=== PATIENT | male | born 1945 | race Caucasian/White ===

== ENCOUNTER → 2017-05-27 | Outpatient (CLI) | payer OTHER ==
[~2017-05-27] MED LIST: ACET-2043 PO; ACET500T68 PO; ALL300 PO; ALLO-119 PO; ASPI-816 CHEW; ATEN-1 PO; CAL667 PO; CETI-14 PO; CETI-176 PO; CHOL10005 PO; CHOL100052 PO; Capsaicin TP; DEX4 PO; DICL100G39 TOP; DULO30CA35 PO; DULO60CA56 PO; FLUT16SP19 ENA; FLUT16SP19 NS; FURO-45 PO; GABA-549 PO; GUAI600T57 PO; GUAI600T84 PO; HYDR2TAB4 PO; LEV125 PO; LEVO125T77 PO; LISI-362 PO; LOR5/325 PO; LOVA20TA99 PO; LOVA40TA89 PO; METO50TA19 PO; Multivitamins PO; NEPH PO; OMEP-137 PO; PANT40TA65 PO; POTA-53 PO; SENN-274 PO; TAMS0.4C70 PO; TIZA-128 PO; TIZA4CAP3 PO; TRAM-420 PO; UBIQ100C3 PO; WARF-1 PO; WARF-18 PO; WARF2.5T11 PO; [UNRECOGNIZED DRUG - CODE] TP; [UNRECOGNIZED DRUG - OTHER] PO
== END ==
LOC: LAB 11:28
PROVIDERS: ATTEND Internal Medicine
DX: M46.20 Osteomyelitis of vertebra, site unspecified (principal)
CPT/HCPCS: 36415; 86140

== ENCOUNTER → 2017-06-24 | Outpatient (CLI) | payer OTHER, MEDICARE ==
[~2017-06-24] MED LIST changes: -WARF-18 PO; +WARF5TAB23 PO
== END ==
LOC: LAB 10:45
PROVIDERS: ATTEND Internal Medicine
DX: M46.20 Osteomyelitis of vertebra, site unspecified (principal)
CPT/HCPCS: 36415; 86140

== ENCOUNTER 2017-07-11 09:47 | Outpatient (RCR) | payer OTHER, MEDICARE ==
--- NOTE | 2017-04-22 14:38 | PT INITIAL EVALUATION ---
MEDICAL DIAGNOSIS: Generalized weakness and Deconditioning TREATMENT DIAGNOSIS: Generalized weakness and Deconditioning DATE OF ONSET: 03/06/17 SUBJECTIVE: Jah Slaughter", is a 72 year-old male presenting to physical therapy following recent spinal fusion on March 06, 2017. Pt has had several fusions in the past with the first in 1979. This most recent fusion was from T10-L3 resulting in a total fusion of T10-S1. Since the surgery pt reports that he has been doing better and has been trying to walk as much as possible walking in the grocery stores and supermarkets. Pt reports no pain currently and generally only low pain at night. Prior to surgery pt was very sedentary secondary to pain and was also hospitalized for an extended time for osteomyelitis in October so pt was very weak before surgery from inactivity. Currently pt is trying to regain strength while also respecting and supporting recent surgery. REHAB PROBLEM LIST: Increased Pain Decreased ROM Impaired Bed Mobility Decreased Strength Impaired Transfers Decreased Endurance Decreased Function Decreased ADL's Decreased Mobility Decreased Gait PREVIOUS MEDICAL HISTORY: See EMR OBJECTIVE: Incision is healing nicely without any redness, drainage or warmth surrounding. Pt has multiple locations of scabbing. Incision has poor mobility. Posture: Forward posture lean with ambulation hinging at hips. ROM: LE ROM WFL Strength: LE MMT: Hip: flexion: L 4-/5, R 4/5, ext: B 5-/5, abd/add: B 5-/5. Knee: Flexion: L 4-/5, R 4/5, ext: B 4/5. Ankle: DF: L 3-/3, R 3+/5, PF: L 2+/5 , R 3+/5. Mobility: 5 times sit<>stand: 10 sec without use of B UE but with significant deviation in hip positioning with increased loading of R LE. Gait: Pt uses a FWW with UE platform modifications for long distance or ambulation on unsteady terrain. At home pt uses SPC for improved mobility. Pt reports that he occasionally catches toe with ambulation. Gait is significant for decreased foot clearance and slow subha with small stride. Other Objective Findings: Lower Extremity Functional Scale: 21/80 ASSESSMENT: Pt shows signs and symptoms consistent with generalized weakness following recent spinal fusion. Physical therapy is indicated to address the above listed deficits and impairments to improve pt functional ambulation, mobility and function with ALD's. Short Term Goals In 3 weeks pt will report back pain of <1/10 with ADL's and mobility for increased function. In 3 weeks pt will improve LE strength to >3+/5 in all major muscle groups for improved functional ambulation with ADL's. In 5 weeks pt will be able to ambulate 2 laps around the track with SPC safely without any LOB for improved function with ADL's. In 6 weeks pt will increase strength to >4/5 in all major muscle groups for improved functional ambulation. In 6 weeks pt will increase LEFS score to >30/50 for improved functional ability to perform ADL's. Patient's Goals Improve strength and function. PLAN: Patient to be seen for Manual Therapy/STM/MET Strengthening/condition Ice/Heat Range of Motion Spinal Stabilization Ultrasound Stretching Iontophoresis Neuromuscular Re-ed Closed Chain Program Electrical Stim Posture/Body mechanics Gait Trg/Balance Trg Biofeedback Home Exercise Program Mech./Manual Traction Therapeutic Activities Pelvic Floor 2x/Week for 6 Weeks If you have any questions, comments, or concerns about this report or plan, please contact me at . Thank you, Jamila Spencer, PT, DPT, CLT MTDD
--- NOTE | 2017-05-27 12:51 | PT PLAN OF CARE ---
Physician: SILVIA Ramos Patient is being seen: 2-3x/Week Therapist: Jamila Spencer, PT, DPT, CLT Medical Diagnosis: Generalized weakness and Deconditioning Treatment Diagnosis: Generalized weakness and Deconditioning Date of Onset: 03/06/17 Date of Initial Evaluation: 04/22/17 Date patient was last seen: 05/27/17 Number of treatments: 10 Number of cancellations/No shows: 1 INTERVENTIONS: Manual Therapy/STM/MET Strengthening/condition Ice/Heat Range of Motion Spinal Stabilization Ultrasound Stretching Iontophoresis Neuromuscular Re-ed Closed Chain Program Electrical Stim Posture/Body mechanics Gait Trg/Balance Trg Biofeedback Home Exercise Program Mech./Manual Traction Therapeutic Activities Pelvic Floor GOALS: In 3 weeks pt will report back pain of <1/10 with ADL's and mobility for increased function. MET In 3 weeks pt will improve LE strength to >3+/5 in all major muscle groups for improved functional ambulation with ADL's. In Progress In 5 weeks pt will be able to ambulate 2 laps around the track with SPC safely without any LOB for improved function with ADL's. In Progress In 6 weeks pt will increase strength to >4/5 in all major muscle groups for improved functional ambulation. In Progress PATIENT'S GOAL: Improve strength and function. Status of Patient's Goals: 1/4 MET, 3/4 In Progress Patient Compliance: Good Prognosis: Good Reasons for continuing therapy: German shows good progress in therapy at this time. German shows improved strength in most all LE muscle groups B, and this has translated into increased functional strength with ADL's and mobility. Pt is still quick to fatigue with further treatment to gain muscular endurance. He also has more progress to make on strength recovery of the ankle joints for gait and balance. Incision mobility shows progress, but is still limited on the distal aspect where old scar tissue is limiting. Posture: Forward posture lean with ambulation hinging at hips. ROM: LE ROM WFL Strength: LE MMT: Hip: flexion: B 4+/5, ext: B 5-/5, abd/add: B 5/5. Knee: Flexion: B 4+/5, ext: L 4/5, R 4+/5. Ankle: DF: L 3/5, R 3+/5, PF: L B 3+/5. Special Tests: Lower Extremity Functional Scale: 39/80 (initial eval ) Mobility: 5 times sit<>stand: 10 sec. If you have any questions or concerns, please feel free to contact me at . Thank you, Jamila Spencer, PT, DPT, CLT CAYETANOD
--- NOTE | 2017-06-10 15:23 | PT PLAN OF CARE ---
Physician: SILVIA Ramos Patient is being seen: 2-3x/Week Therapist: Jamila Spencer, PT, DPT, CLT Medical Diagnosis: Generalized weakness and Deconditioning Treatment Diagnosis: Generalized weakness and Deconditioning Date of Onset: 03/06/17 Date of Initial Evaluation: 04/22/17 Date patient was last seen: 06/10/17 Number of treatments: 14 Number of cancellations/No shows: 1 INTERVENTIONS: Manual Therapy/STM/MET Strengthening/condition Ice/Heat Range of Motion Spinal Stabilization Ultrasound Stretching Iontophoresis Neuromuscular Re-ed Closed Chain Program Electrical Stim Posture/Body mechanics Gait Trg/Balance Trg Biofeedback Home Exercise Program Mech./Manual Traction Therapeutic Activities Pelvic Floor GOALS: In 3 weeks pt will report back pain of <1/10 with ADL's and mobility for increased function. MET In 3 weeks pt will improve LE strength to >3+/5 in all major muscle groups for improved functional ambulation with ADL's. In Progress In 5 weeks pt will be able to ambulate 2 laps around the track with SPC safely without any LOB for improved function with ADL's. In Progress In 6 weeks pt will increase strength to >4/5 in all major muscle groups for improved functional ambulation. In Progress PATIENT'S GOAL: Improve strength and function. Status of Patient's Goals: 1/4 MET, 3/4 In Progress Patient Compliance: Good Prognosis: Good Reasons for continuing therapy: German shows improved endurance with ambulation as well as progressive improvement with strengthening. Proximal strength shows gains much more than distally with ankle strength still his biggest limiting factor. Gait remains significant for Trendelenburg pattern, but is reduced prior to fatigue. Incision mobility shows improvement, but is also slow to progress with extensive scar tissue. Posture: Forward posture lean with ambulation hinging at hips. ROM: LE ROM WFL Strength: LE MMT: Hip: flexion: B 4+/5, ext: B 5-/5, abd/add: B 5/5. Knee: Flexion: B 4+/5, ext: L 4/5, R 4+/5. Ankle: DF: L 3/5, R 3+/5, PF: L B 3+/5. Special Tests: Lower Extremity Functional Scale: 47/80 (initial eval ) Mobility: 5 times sit<>stand: 10 sec. If you have any questions or concerns, please feel free to contact me at [phone]. Thank you, Jamila Spencer, PT, DPT, CLT ANEL
== END 2017-07-21 | disposition home or self-care (01) ==
LOC: PT 09:47
PROVIDERS: ATTEND Nurse Practitioner Family
DX: M62.81 Muscle weakness (generalized) (principal); Z98.1 Arthrodesis status
CPT/HCPCS: 97162

== ENCOUNTER → 2017-07-15 | Outpatient (CLI) | payer OTHER, MEDICARE | LOC: LAB 12:31 | PROVIDERS: ATTEND Internal Medicine Nephrology | DX: N18.2 Chronic kidney disease, stage 2 (mild) (principal); N40.0 Benign prostatic hyperplasia without lower urinary tract symptoms | CPT/HCPCS: 81001 ==

== ENCOUNTER → 2017-07-16 | Outpatient (REF) | payer OTHER, MEDICARE | LOC: ZZSENDIN 13:22 | DX: R31.1 Benign essential microscopic hematuria (principal) | CPT/HCPCS: 81001; 87088 ==

== ENCOUNTER → 2017-07-18 | Outpatient (CLI) | payer MEDICARE, OTHER ==
--- NOTE | 2017-07-18 16:44 | RADIOLOGY IMAGING REPORT ---
FACILITY: [facility] PATIENT NAME: Jah Crabtree : 1945 MR: [id number] V: [id number] EXAM DATE: ORDERING PHYSICIAN: TONYA GUZMAN TECHNOLOGIST: Location: [facility] Patient: Jah Crabtree : 1945 Visit/Account:[id number] Date of Sevice: 07/18/2017 US SINGLE ORGAN, bladder HISTORY: Urinary incontinence at night COMPARISON: CT abdomen and pelvis October 25, 2016 FINDINGS: Urinary bladder prevoid volume was 326 mm. Post void residual was zero. Bilateral ureteral jets wer e present. No abnormality of the bladder wall was demonstrated IMPRESSION: Post void bladder residual zero Report Dictated By: Ana Euceda MD at 07/18/2017 4:37 PM Report E-Signed By: Ana Euceda MD at 07/18/2017 4:39 PM WSN:[id number]
== END ==
LOC: US 00:39
DX: R39.14 Feeling of incomplete bladder emptying (principal)
CPT/HCPCS: 76705

== ENCOUNTER → 2017-07-29 | Outpatient (CLI) | payer OTHER | LOC: LAB 10:47 | PROVIDERS: ATTEND Internal Medicine | DX: M46.20 Osteomyelitis of vertebra, site unspecified (principal) | CPT/HCPCS: 36415; 86140 ==

== ENCOUNTER 2017-09-09 09:45 | Outpatient (RCR) | payer OTHER, MEDICARE ==
--- NOTE | 2017-07-25 17:20 | PT PLAN OF CARE ---
Physician: SILVIA Ramos Patient is being seen: 2-3x/Week Therapist: Jamila Spencer, PT, DPT, CTL Medical Diagnosis: Generalized weakness and Deconditioning Treatment Diagnosis: Generalized weakness and Deconditioning Date of Onset: 03/06/17 Date of Initial Evaluation: 04/22/17 Date patient was last seen: 07/25/17 Number of treatments: 24 Number of cancellations/No shows: 4 INTERVENTIONS: Manual Therapy/STM/MET Strengthening/condition Ice/Heat Range of Motion Spinal Stabilization Ultrasound Stretching Iontophoresis Neuromuscular Re-ed Closed Chain Program Electrical Stim Posture/Body mechanics Gait Trg/Balance Trg Biofeedback Home Exercise Program Mech./Manual Traction Therapeutic Activities Pelvic Floor GOALS: In 3 weeks pt will report back pain of <1/10 with ADL's and mobility for increased function. MET In 3 weeks pt will improve LE strength to >3+/5 in all major muscle groups for improved functional ambulation with ADL's. MET In 5 weeks pt will be able to ambulate 2 laps around the track with SPC safely without any LOB for improved function with ADL's. MET In 6 weeks pt will increase strength to >4/5 in all major muscle groups for improved functional ambulation. In Progress PATIENT'S GOAL: Improve strength and function. Status of Patient's Goals: 3/4 Goals MET Patient Compliance: Good Prognosis: Good Reasons for continuing therapy: Pt shows slow, but good progress with endurance and strength. Pt shows neuromuscular return to B feet and ankles resulting in improved balance. Pt is still quick to fatigue with ambulation, but shows progress each visit with endurance gains. Back pain regularly fluctuates at low ranges if present. Further physical therapy is indicated for this patient to continue with pt progress to meet functional goals. Posture: Forward posture lean with ambulation hinging at hips. ROM: LE ROM WFL Strength: LE MMT: Hip: flexion: B 5/5, ext: B 5-/5, abd/add: B 5/5. Knee: Flexion: B 5-/5, ext: L 4/5, R 4+/5. Ankle: DF: L 4/5, R 4+/5, PF: B 3+/5. Special Tests: Lower Extremity Functional Scale: 44/80 (initial eval /) Mobility: 5 times sit<>stand: 10 sec. Gait: Pt is able to ambulate 3 laps around the track with standing rest breaks two times. 6-minute walk: 513 moyo=669.4 meters If you have any questions or concerns, please feel free to contact me at . Thank you, Jamila Spencer, PT, DPT, CLT ANEL
[~2017-09-09 09:45] MED LIST changes: -ASPI-816 CHEW; +ASPI-870 CHEW
--- NOTE | 2017-09-26 11:38 | PT PLAN OF CARE ---
Physician: SILVIA Ramos Patient is being seen: 2-3x/Week Therapist: Jamila Spencer, PT, DPT, CLT Medical Diagnosis: Generalized weakness and Deconditioning Treatment Diagnosis: Generalized weakness and Deconditioning Date of Onset: 03/06/17 Date of Initial Evaluation: 04/22/17 Date patient was last seen: 09/09/17 Number of treatments: 30 Number of cancellations/No shows: 9 INTERVENTIONS: Manual Therapy/STM/MET Strengthening/condition Ice/Heat Range of Motion Spinal Stabilization Ultrasound Stretching Iontophoresis Neuromuscular Re-ed Closed Chain Program Electrical Stim Posture/Body mechanics Gait Trg/Balance Trg Biofeedback Home Exercise Program Mech./Manual Traction Therapeutic Activities Pelvic Floor GOALS: In 3 weeks pt will report back pain of <1/10 with ADL's and mobility for increased function. MET In 3 weeks pt will improve LE strength to >3+/5 in all major muscle groups for improved functional ambulation with ADL's. MET In 5 weeks pt will be able to ambulate 2 laps around the track with SPC safely without any LOB for improved function with ADL's. MET In 6 weeks pt will increase strength to >4/5 in all major muscle groups for improved functional ambulation. In Progress PATIENT'S GOAL: Improve strength and function. Status of Patient's Goals: 3/4 Goals MET Patient Compliance: Good Prognosis: Good Reasons for discharge from therapy: German is to discharge from physical therapy at this time secondary to completion of 3/4 goals. At the time of discharge, pt showed improved gait mechanics as well as LE strength and balance. Pt endurance shows improvement and pt is able to tolerate prolonged walking with occasional rest breaks. However, pt remains to have intermittent pain in the R lateral hip secondary to likely bursitis. Pt shows little response to ice and exercise resulting in small decreases in frequency of pain. However, pt also reports low compliance with frequency of icing as well as low compliance with performance of HEP. I believe that patient would benefit from steroid injections to the hip to decrease the inflammatory process. Pt is to continue with HEP and gait correction techniques at this time and follow up with PT at a later time following consult with orthopaedic physician. Posture: Forward posture lean with ambulation hinging at hips. ROM: LE ROM WFL Strength: LE MMT: Hip: flexion: B 5/5, ext: B 5-/5, abd/add: B 5/5. Knee: Flexion: B 5-/5, ext: L 4/5, R 4+/5. Ankle: DF: L 4/5, R 4+/5, PF: B 3+/5. Special Tests: Lower Extremity Functional Scale: 44/80 (initial eval ) Mobility: 5 times sit<>stand: 10 sec. Gait: Pt is able to ambulate 3 laps around the track with standing rest breaks two times. 6-minute walk: 513 xbud=178.4 meters If you have any questions or concerns, please feel free to contact me at . Thank you, Jamila Spencer, PT, DPT, CLT CAYETANOD
== END 2017-09-09 18:00 | disposition home or self-care (01) ==
LOC: PT 09:45
PROVIDERS: ATTEND Nurse Practitioner Family
DX: M62.81 Muscle weakness (generalized) (principal); Z98.1 Arthrodesis status

== ENCOUNTER 2017-10-22 13:42 | Emergency (ER) | payer MEDICARE, OTHER ==
[2017-10-22] MEDS ORDERED: WARF5TAB23 PO ×2 (13:50)
--- NOTE | 2017-10-22 14:00 | ER Report ---
History and Physical Time Seen By MD: 13:50 Hx. of Stated Complaint: FELL BACKWARDS OFF OF STEP LADDER. LACERATION TO HEAD HPI/ROS Chief Complaint: "Fell from stool and hit head" HPI: 72-year-old male presents to the ED today with his . The patient reports that he fell about 30 minutes ago from a stool in the garage and hit his head. He states that he did not lose consciousness. Reports no associated pain. No treatments tried. ROS: Constitutional: Denies fever, or chills Eyes: denies changes in vision ENMT: denies sinus pressure CV: denies chest pain Resp: denies shortness of breath, denies difficulty breathing GI: denies nausea or vomiting Musculoskeletal: denies pain Neuro: denies headache, denies pain Allergies: Coded Allergies: morphine (Verified Allergy, Intermediate, nausea/vomiting, 10/22/17) Home Meds Active Scripts Tramadol Hcl (TRAMADOL HCL) 50 Mg Tablet, 50 MG PO TID Y for PAIN, #30 TAB Prov:ABI GORDON MD 11/21/16 Vitamin B Cmplx/Vit C/Folic Ac (TRIPHROCAPS SOFTGEL) 1 Each Cap, 1 EACH PO QDAY , #30 CAP Prov:ABI GORDON MD 11/21/16 Ubiquinol (UBIQUINOL) 100 Mg Capsule, 100 MG PO QHS, #30 CAPSULE Prov:ABI GORDON MD 11/21/16 Sennosides/Docusate Sodium (SENNA-TIME S TABLET) 1 Each Tablet, 1 EACH PO BID, # 60 TAB Prov:ABI GORDON MD 11/21/16 [Multivitamins Tab] 1 EA TAB No Conflict Check, 1 EACH PO QDAY, #30 TAB Prov:ABI GORDON MD 11/21/16 Metoprolol Succinate (METOPROLOL SUCCINATE) 50 Mg Tab.er.24h, 150 MG PO QDAY, # 90 TAB Prov:ABI GORDON MD 11/21/16 Duloxetine Hcl (CYMBALTA) 30 Mg Capsule.dr, 60 MG PO QDAY, #30 CAP Prov:ABI GORDON MD 11/21/16 Cholecalciferol (Vitamin D3) (VITAMIN D) 1,000 Unit Tablet, 1000 UNIT PO QDAY, # 30 TAB Prov:ABI GORDON MD 11/21/16 [Beta-Carotene(A) & E/Min Tab] 1 EA TAB No Conflict Check, 1 EACH PO BIDBS, #60 TAB Prov:ABI GORDON MD 11/21/16 Aspirin (Children's Aspirin) 81 Mg Tab.chew, 81 MG CHEW QDAY, #30 TAB.CHEW Prov:ABI GORDON MD 11/21/16 Allopurinol (ZYLOPRIM 300 MG TAB (OR EQUIV)) 300 Mg Tab, 150 MG PO QHS, #30 TAB Prov:ABI GORDON MD 11/21/16 Acetaminophen (ACETAMINOPHEN) 500 Mg Tablet, 1000 MG PO BID Y for PAIN, #100 TAB Prov:ABI GORDON MD 11/21/16 Reported Medications Gabapentin (GABAPENTIN) 300 Mg Capsule, 300-600 MG PO BID, CAPSULE 10/22/17 Warfarin Sodium (WARFARIN SODIUM) 5 Mg Tablet, 2.5 MG PO SAT, SUN, TAB 10/22/17 Warfarin Sodium (WARFARIN SODIUM) 5 Mg Tablet, 5 MG PO M-F, TAB 10/22/17 Lovastatin (LOVASTATIN) 40 Mg Tablet, 40 MG PO QPM 10/25/16 Levothyroxine Sodium (SYNTHROID) 125 Mcg Tablet, 125 MCG PO QDAY 10/25/16 Tizanidine Hcl (TIZANIDINE HCL) 4 Mg Tablet, 4 MG PO HS 10/25/16 Tamsulosin Hcl (TAMSULOSIN HCL) 0.4 Mg Cap.er.24h, 0.4 MG PO QDAY, CAP 10/25/16 Omeprazole (OMEPRAZOLE) 20 Mg Tablet.dr, 20 MG PO QDAY, TAB 10/25/16 Guaifenesin (Guaifenesin ER) 600 Mg Tab.er.12h, 1 TAB PO BID 10/25/16 Fluticasone Prop 50 Mcg Ns (FLONASE 50 MCG NS) 16 Gm [place].susp, 2 SPRAYS NS QDAY, BOT 10/25/16 Cetirizine Hcl (ZYRTEC) 10 Mg Tablet, 10 MG PO QDAY, TAB 10/25/16 Discontinued Reported Medications Cholecalciferol (Vitamin D3) (VITAMIN D3) 1,000 Unit Tablet, 2000 UNIT PO QDAY, TAB 10/25/16 Atenolol (ATENOLOL) 50 Mg Tablet, 0.5 TAB PO QAM, TAB 10/25/16 Gabapentin (GABAPENTIN) 300 Mg Capsule, 1200 MG PO QHS, CAPSULE 10/25/16 Gabapentin (GABAPENTIN) 300 Mg Capsule, 900 MG PO TID Y for QAM, CAPSULE 10/25/16 Duloxetine Hcl (CYMBALTA) 60 Mg Capsule.dr, 60 MG PO QDAY, #5 CAP 10/25/16 Capsaicin (CAPSAICIN) 42.5 Gm Cream..g., 42.5 GM TP 10/25/16 Allopurinol (ZYLOPRIM) 300 Mg Tablet, 150 MG PO QDAY, TAB 10/25/16 Acetaminophen (TYLENOL EXTRA STRENGTH) 500 Mg Tablet, 1000 MG PO BID, TAB 10/25/16 Discontinued Scripts Warfarin Sodium (WARFARIN SODIUM) 2.5 Mg Tablet, 2.5 MG PO MoFr@1300, #10 TAB Prov:ABI GORDON MD 11/21/16 Warfarin Sodium (COUMADIN) 5 Mg Tablet, 5 MG PO SuTuWeThSa@1300, #25 TAB Prov:ABI GORDON MD 11/21/16 Tizanidine Hcl (TIZANIDINE HCL) 4 Mg Tablet, 4 MG PO TID Y for MUSCLE SPASMS/ BACK PAIN, #90 TAB Prov:ABI GORDON MD 11/21/16 Tamsulosin Hcl (TAMSULOSIN HCL) 0.4 Mg Cap.er.24h, 0.4 MG PO QHS, #30 CAP Prov:ABI GORDON MD 11/21/16 Pantoprazole Sodium (PANTOPRAZOLE SODIUM) 40 Mg Tablet.dr, 40 MG PO QDAY, #30 TAB Prov:ABI GORDON MD 11/21/16 Lovastatin (LOVASTATIN) 20 Mg Tablet, 40 MG PO QHS, #30 TAB Prov:ABI GORDON MD 11/21/16 Levothyroxine Sodium (LEVOTHYROXINE SODIUM) 0.125 Mg Tab, 0.125 MG PO QDAY@06, # 30 TAB Prov:ABI GORDON MD 11/21/16 Hydromorphone Hcl (HYDROMORPHONE HCL) 2 Mg Tablet, 4 MG PO Q6H Y for ACUTE PAIN , #15 TAB Prov:ABI GORDON MD 11/21/16 Hydrocodone Bit/Acetaminophen (HYDROCODON-ACETAMINOPHEN 5-325) 1 Each Tablet, 1- 2 EACH PO Q6H Y for ACUTE PAIN, #30 TAB Prov:ABI GORDON MD 11/21/16 Guaifenesin (MUCINEX) 600 Mg Tablet.er, 600 MG PO BID, #60 TAB Prov:ABI GORDON MD 11/21/16 Gabapentin (GABAPENTIN) 300 Mg Capsule, 1200 MG PO QHS, #120 CAPSULE Prov:ABI GORDON MD 11/21/16 Gabapentin (GABAPENTIN) 300 Mg Capsule, 900 MG PO QAM, #90 CAPSULE Prov:ABI GORDON MD 11/21/16 Fluticasone Prop 50 Mcg Ns (FLONASE 50 MCG NS) 16 Gm [place].susp, 0 GM MARISOL QDAY, #1 BOTTLE 2 sprays each nostril daily. Prov:ABI GORDON MD 11/21/16 Diclofenac Sodium 1% Gel (VOLTAREN 1% GEL) 100 Gm Gel..gram., 0 GM TOP BID, #1 TUBE Prov:ABI GORDON MD 11/21/16 Cetirizine Hcl (ALL DAY ALLERGY) 10 Mg Tablet, 10 MG PO QDAY, #30 TAB Prov:ABI GORDON MD 11/21/16 [Capsaicin 60 Gm Tube] 60 GM CR No Conflict Check, 0 GM TP QID, #1 TUBE Prov:ABI GORDON MD 11/21/16 Calcium Acetate (CALCIUM ACETATE) 667 Mg Cap, 667 MG PO TIDCF, #90 CAP Prov:ABI GORDON MD 11/21/16 Past Medical/Surgical History Spinal surgery February/2017 Hx Smoking: No Smoking Status: Never Smoker Hx Substance Use Disorder: No Hx Alcohol Use: No Constitutional Vital Sign - Last 24 Hours 10/22/17 10/22/17 10/22/17 10/22/17 13:47 13:49 13:57 14:12 Temp 98.3 Pulse 54 52 49 Resp 18 B/P (MAP) 153/86 153/86 (108) Pulse Ox 94 93 95 O2 Delivery Room Air 10/22/17 10/22/17 10/22/17 10/22/17 14:42 14:57 15:00 15:12 Pulse 45 50 44 B/P (MAP) 139/77 (97) Pulse Ox 93 91 92 10/22/17 15:12 Pulse 44 Pulse Ox 92 Physical Exam Physical Examination: General: 72-year-old, male, in no acute distress Head: normocephalic, 0.5 cm laceration to crown of head with scant blood Respiratory: BL equal respiratory excursion, CTA BL CV: Clear S1 S2, no murmurs Differential Diagnoses: Intracranial hemorrhage, concussion, laceration Medical Decision Making Data Points Laboratory Hematology Test 10/22/17 13:55 Prothrombin Time 23.3 seconds (12.0-14.4) Prothromb Time International Ratio 2.01 Activated Partial Thromboplast Time 43 seconds (23-35) Chemistry Test 10/22/17 13:55 Prothrombin Time 23.3 seconds (12.0-14.4) Prothromb Time International Ratio 2.01 Activated Partial Thromboplast Time 43 seconds (23-35) Coagulation Test 10/22/17 13:55 Prothrombin Time 23.3 seconds Prothromb Time International Ratio 2.01 Activated Partial Thromboplast Time 43 seconds EKG/Imaging Imaging Exam type: LUMBAR SPINE 4 VIEWS History: fall Comparison: CT and pelvis October 25, 2016 Findings: There are extensive postoperative changes of the thoracolumbar spine with pedicle screws at L4, L3, L2, T12, T11, T10. There is a metallic spacer between the T12 and L2 vertebral bodies in the location of a previously noted vertebral plantar at L1. Posterior fixation rods are in place. There is diffuse demineralization. There is a moderate compression fracture of T12 that appears similar to the prior study. Also noted are mild to moderate compression fractures also noted at T11, T10 and T9 perhaps slightly increased when compared to the prior study.. IMPRESSION: 1. Extensive postoperative changes of the thoracal lumbar spine as described above. Mild to moderate compression fractures at T9, T10, T11 may be slightly increased when compared to the prior CT from October 25, 2016 Report Dictated By: Ana Euceda MD at 10/22/2017 2:46 PM Report E-Signed By: Ana Euceda MD at 10/22/2017 2:[address] OF THE BRAIN WITHOUT CONTRAST HISTORY: Fell from a ladder. PROCEDURE: 3.0 mm contiguous axial sections were performed through the brain. Sagittal and coronal reformats were submitted. COMPARISON: None FINDINGS: BRAIN: Brain and intracranial structures: There is no mass lesion, hemorrhage or acute infarct. Orbits (included portions): Normal. Scalp: Laceration posteriorly on the left Skull: Normal. Paranasal sinuses and mastoid air cells (included portions): The medial maxillary sinus gage been resected. There is mild ethmoid and maxillary mucosal thickening. IMPRESSION: No evidence of acute intracranial abnormality. One of the following dose optimization techniques was utilized in the performance of this exam: Automated exposure control; adjustment of the mA and/ or kV according to the patient's size; or use of an iterative reconstruction technique. Specific details can be referenced in the facility's radiology CT exam operational policy. Report Dictated By: Doris Burgess MD at 10/22/2017 2:34 PM Report E-Signed By: Doris Burgess MD at 10/22/2017 2:38 PM ED Course/Re-evaluation ED Course 72-year-old patient present to the ED after falling from a stool while reaching for an item in the garage. History and physical examination was obtained. Differential diagnoses considered and discussed with the patient. Due to his Coumadin regiment the patient was sent for a CT of the head. The CT was negative for intracranial bleed. Due to recent surgery lumbar x-rays were done which were negative for any acute changes. Five jeanie were placed to close the head laceration and the patient was sent home for self-care. He has been encouraged to return to the clinic if his condition worsens. Procedure Patient identified, 0.5 cm laceration cleaned, 2mls of lidocaine with epinephrine injected into the scalp to anesthetize and 5 jeanie were placed to close the laceration. Decision to Disposition Date: Oct 22, 2017 Decision to Disposition Time: 15:42 Depart Departure Latest Vital Signs Vital Signs Date Time Temp Pulse Resp B/P (MAP) Pulse Ox O2 Delivery O2 Flow Rate FiO2 10/22/17 15:12 44 92 10/22/17 15:00 139/77 (97) 10/22/17 13:47 98.3 18 Room Air Impression: Primary Impression: Laceration of head Condition: Improved Disposition: HOME OR SELF-CARE Referrals: ROCKY HERNANDEZ APPLICATION CONSULTANT-C (PCP) Patient Instructions: Laceration (ED) Additional Instructions: Keep the wound clean and dry. Avoid showering the head for 48 hours Jigar will remove the jeanie in 5 days. Return to the Emergency Department if your condition worsens. Seek medical attention if you are experiencing and pain, redness, or swelling of the wound. Seek medical attention if you experience severe headache, nausea or vomiting. Problem Qualifiers Primary Impression: Laceration of head Encounter type: initial encounter Location of open wound of head: scalp Foreign body presence: without foreign body Qualified Codes: S01.01XA - Laceration without foreign body of scalp, initial encounter JIGAR PICKERING Oct 22, 2017 13:59
[2017-10-22] MEDS ORDERED: GABA-549 PO (14:01)
[2017-10-22 14:19] LABS: INR 2.01
--- NOTE | 2017-10-22 14:44 | RADIOLOGY IMAGING REPORT ---
FACILITY: [facility] PATIENT NAME: Jah Crabtree : 1945 MR: [id number] V: [id number] EXAM DATE: ORDERING PHYSICIAN: PASCUAL CRABTREE TECHNOLOGIST: Location: [facility] Patient: Jah Crabtree : 1945 Visit/Account:[id number] Date of Sevice: 10/22/2017 CT OF THE BRAIN WITHOUT CONTRAST HISTORY: Fell from a ladder. PROCEDURE: 3.0 mm contiguous axial sections were performed through the brain. Sagittal and coronal r eformats were submitted. COMPARISON: None FINDINGS: BRAIN: Brain and intracranial structures: There is no mass lesion, hemorrhage or acute infarct. Orbits (included portions): Normal. Scalp: Laceration posteriorly on the left Skull: Normal. Paranasal sinuses and mastoid air cells (included portions): The medial maxillary sinus gage been re sected. There is mild ethmoid and maxillary mucosal thickening. IMPRESSION: No evidence of acute intracranial abnormality. One of the following dose optimization techniques was utilized in the performance of this exam: Autom ated exposure control; adjustment of the mA and/or kV according to the patient's size; or use of an i terative reconstruction technique. Specific details can be referenced in the facility's radiology C T exam operational policy. Report Dictated By: Doris Burgess MD at 10/22/2017 2:34 PM Report E-Signed By: Doris Burgess MD at 10/22/2017 2:38 PM WSN:[id number]
--- NOTE | 2017-10-22 14:56 | RADIOLOGY IMAGING REPORT ---
FACILITY: [facility] [place] PATIENT NAME: Jah Crabtree : 1945 MR: [id number] V: [id number] EXAM DATE: ORDERING PHYSICIAN: PASCUAL CRABTREE TECHNOLOGIST: Location: [facility] Patient: Jah Crabtree : 1945 Visit/Account:[id number] Date of Sevice: 10/22/2017 Exam type: LUMBAR SPINE 4 VIEWS History: fall Comparison: CT and pelvis October 25, 2016 Findings: There are extensive postoperative changes of the thoracolumbar spine with pedicle screws at L4, L3, L 2, T12, T11, T10. There is a metallic spacer between the T12 and L2 vertebral bodies in the location of a previously noted vertebral plantar at L1. Posterior fixation rods are in place. There is diff use demineralization. There is a moderate compression fracture of T12 that appears similar to the pr ior study. Also noted are mild to moderate compression fractures also noted at T11, T10 and T9 perha ps slightly increased when compared to the prior study.. IMPRESSION: 1. Extensive postoperative changes of the thoracal lumbar spine as described above. Mild to moderate compression fractures at T9, T10, T11 may be slightly increased when compared to the prior CT from October 25, 2016 Report Dictated By: Ana Euceda MD at 10/22/2017 2:46 PM Report E-Signed By: Ana Euceda MD at 10/22/2017 2:51 PM WSN:[email or web address]
[2017-10-22 15:00] VITALS: BP 139/77
== END 2017-10-22 15:52 | disposition home or self-care (01) ==
LOC: ER 13:45
DX: S01.01XA Laceration without foreign body of scalp, initial encounter (principal); Z79.01 Long term (current) use of anticoagulants; W11.XXXA Fall on and from ladder, initial encounter
CPT/HCPCS: 70450; 72120; 85610; 85730; 99284

== ENCOUNTER → 2017-11-21 | Outpatient (CLI) | payer MEDICARE | LOC: LAB 09:41 | PROVIDERS: ATTEND Internal Medicine | DX: M46.20 Osteomyelitis of vertebra, site unspecified (principal) | CPT/HCPCS: 36415; 86140 ==

== ENCOUNTER → 2018-01-27 | Outpatient (CLI) | payer MEDICARE | LOC: LAB 09:40 | PROVIDERS: ATTEND Internal Medicine | DX: M46.20 Osteomyelitis of vertebra, site unspecified (principal) | CPT/HCPCS: 36415; 86140 ==

== ENCOUNTER → 2018-02-03 | Outpatient (CLI) | payer MEDICARE ==
[2018-02-03 13:56] LABS: PLATELET COUNT, AUTOMATED 240 K/uL (150-450)
== END ==
LOC: LAB 13:35
PROVIDERS: ATTEND Internal Medicine Nephrology
DX: N18.2 Chronic kidney disease, stage 2 (mild) (principal); I10 Essential (primary) hypertension; D50.9 Iron deficiency anemia, unspecified
CPT/HCPCS: 36415; 81001; 82040; 82310; 82374; 82435; 82565; 82728; 82947; 83540; 83550; 84100; 84132; 84295; 84520; 85025; 87088

== ENCOUNTER → 2018-04-10 | Outpatient (CLI) | payer MEDICARE ==
[~2018-04-10] MED LIST changes: -CETI-14 PO; +CETI-154 PO
[2018-04-10 09:26] LABS: LDL CHOLESTEROL 72 mg/dl
== END ==
LOC: LAB 08:46
PROVIDERS: ATTEND Internal Medicine Cardiovascular Disease
DX: I48.3 Typical atrial flutter (principal); I48.1 Persistent atrial fibrillation; I10 Essential (primary) hypertension; I45.2 Bifascicular block; R60.1 Generalized edema; E78.00 Pure hypercholesterolemia, unspecified
CPT/HCPCS: 36415; 82310; 82374; 82435; 82465; 82565; 82947; 83718; 84132; 84295; 84478; 84520

== ENCOUNTER 2018-04-15 19:43 | Emergency (ER) | payer MEDICARE ==
[2018-04-15] MEDS ORDERED: LEVO-3 PO (20:03)
[2018-04-15] MEDS ORDERED: HYDR12.556 PO (20:05)
[2018-04-15] MEDS ORDERED: DOXY-179 PO (20:05)
--- NOTE | 2018-04-15 20:09 | ER Report ---
History and Physical Time Seen By MD: 20:00 Hx. of Stated Complaint: FEVER WITH RIGHT HAND FINGER PAIN HPI/ROS CHIEF COMPLAINT: hand/wrist pain from fall, swelling, fever HISTORY OF PRESENT ILLNESS: This is a 73 year old male. He fell at the hardware store on Saturday. Had injured his nail on his middle finger. He had wrist and hand pain with swelling. Had seen urgent care and had x-rays of the wrist which were negative. His son did some Marcaine injections of the wrist to help with pain over the weekend with good relief although temporary. He is having continued pain and swelling. Also pain in middle finger where he had the nail injury. Now with some fevers at home, reported Temperature of 101.7 as the highest. He has no other symptoms such as shortness of breath, cough or chest pain. He is having normal bowel and bladder without dysuria. No runny nose or sore throat. Allergies: Coded Allergies: morphine (Verified Allergy, Intermediate, nausea/vomiting, 04/15/18) Home Meds Active Scripts Tramadol Hcl (TRAMADOL HCL) 50 Mg Tablet, 50 MG PO TID PRN for PAIN, #30 TAB Prov:ABI GORDON MD 11/21/16 Vitamin B Cmplx/Vit C/Folic Ac (TRIPHROCAPS SOFTGEL) 1 Each Cap, 1 EACH PO QDAY, #30 CAP Prov:ABI GORDON MD 11/21/16 Ubiquinol (UBIQUINOL) 100 Mg Capsule, 100 MG PO QHS, #30 CAPSULE Prov:ABI GORDON MD 11/21/16 Sennosides/Docusate Sodium (SENNA-TIME S TABLET) 1 Each Tablet, 1 EACH PO BID, #60 TAB Prov:ABI GORDON MD 11/21/16 [Multivitamins Tab] 1 EA TAB No Conflict Check, 1 EACH PO QDAY, #30 TAB Prov:ABI GORDON MD 11/21/16 Metoprolol Succinate (METOPROLOL SUCCINATE) 50 Mg Tab.er.24h, 150 MG PO QDAY, #90 TAB Prov:ABI GORDON MD 11/21/16 Duloxetine Hcl (CYMBALTA) 30 Mg Capsule.dr, 60 MG PO QDAY, #30 CAP Prov:ABI GORDON MD 11/21/16 Cholecalciferol (Vitamin D3) (VITAMIN D) 1,000 Unit Tablet, 1000 UNIT PO QDAY, #30 TAB Prov:ABI GORDON MD 11/21/16 [Beta-Carotene(A) & E/Min Tab] 1 EA TAB No Conflict Check, 1 EACH PO BIDBS, #60 TAB Prov:ABI GORDON MD 11/21/16 Acetaminophen (ACETAMINOPHEN) 500 Mg Tablet, 1000 MG PO BID PRN for PAIN, #100 TAB Prov:ABI GORDON MD 11/21/16 Reported Medications Hydrochlorothiazide (HYDROCHLOROTHIAZIDE) 12.5 Mg Capsule, 1 TAB PO QDAY, CAPSULE 04/15/18 Doxycycline Hyclate (DOXYCYCLINE HYCLATE) 100 Mg Tablet, 100 MG PO QDAY 04/15/18 Levothyroxine Sodium (LEVOTHYROXINE SODIUM) 100 Mcg Tablet, 150 MCG PO QDAY, TAB 04/15/18 Gabapentin (GABAPENTIN) 300 Mg Capsule, 300-600 MG PO BID, CAPSULE 10/22/17 Warfarin Sodium (WARFARIN SODIUM) 5 Mg Tablet, 2.5 MG PO SAT, SUN, TAB 10/22/17 Warfarin Sodium (WARFARIN SODIUM) 5 Mg Tablet, 5 MG PO M-F, TAB 10/22/17 Lovastatin (LOVASTATIN) 40 Mg Tablet, 40 MG PO QPM 10/25/16 Tizanidine Hcl (TIZANIDINE HCL) 4 Mg Tablet, 4 MG PO HS 10/25/16 Tamsulosin Hcl (TAMSULOSIN HCL) 0.4 Mg Cap.er.24h, 0.4 MG PO QDAY, CAP 10/25/16 Omeprazole (OMEPRAZOLE) 20 Mg Tablet.dr, 20 MG PO QDAY, TAB 10/25/16 Guaifenesin (Guaifenesin ER) 600 Mg Tab.er.12h, 1 TAB PO BID 10/25/16 Fluticasone Prop 50 Mcg Ns (FLONASE 50 MCG NS) 16 Gm [place].susp, 2 SPRAYS NS QDAY, BOT 10/25/16 Cetirizine Hcl (ZYRTEC) 10 Mg Tablet, 10 MG PO QDAY, TAB 10/25/16 Discontinued Reported Medications Levothyroxine Sodium (SYNTHROID) 125 Mcg Tablet, 125 MCG PO QDAY 10/25/16 Discontinued Scripts Aspirin (Children's Aspirin) 81 Mg Tab.chew, 81 MG CHEW QDAY, #30 TAB.CHEW Prov:ABI GORDON MD 11/21/16 Allopurinol (ZYLOPRIM 300 MG TAB (OR EQUIV)) 300 Mg Tab, 150 MG PO QHS, #30 TAB Prov:ABI GORDON MD 11/21/16 Reviewed Nurses Notes: Yes Hx Smoking: No Smoking Status: Never Smoker Hx Substance Use Disorder: No Hx Alcohol Use: No Constitutional Vital Sign - Last 24 Hours 04/15/18 04/15/18 04/15/18 04/15/18 19:51 19:54 20:00 20:13 Temp 100.1 Pulse 59 55 Resp 12 B/P (MAP) 124/61 (82) 124/61 115/64 (81) Pulse Ox 85 94 O2 Delivery Room Air 04/15/18 04/15/18 04/15/18 04/15/18 20:30 20:43 20:48 21:00 Pulse 51 58 B/P (MAP) 114/63 (80) ???/??? (1665) Pulse Ox 93 94 04/15/18 04/15/18 04/15/18 04/15/18 21:18 21:23 21:30 21:48 Pulse 55 55 B/P (MAP) 128/62 (84) 120/66 (84) Pulse Ox 95 04/15/18 04/15/18 04/15/18 04/15/18 22:00 22:05 22:30 22:35 Pulse 53 53 B/P (MAP) 132/61 (84) 125/67 (86) Pulse Ox 94 95 04/15/18 22:40 Pulse 52 Pulse Ox 95 Physical Exam General Appearance: The patient is alert. No acute distress. Eyes: Pupils are equal, round. No pallor, injection or icterus. ENT: Mucous membranes are moist. Normal oral mucosa. Posterior oropharynx is normal. Neck: Supple and non tender. Respiratory: Lungs are clear to auscultation. Cardiovascular: Regular rate and rhythm. No murmurs, gallops or rubs. Normal capillary refill. Normal pulses in the right wrist and hand with brisk capillary refill Gastrointestinal: Abdomen is soft and non tender. Neurological: Alert and oriented x3. Normal sensation in the right hand. No focal neurologic deficits in the extremities noted. Skin: Warm and dry throughout. He does have some swelling over the dorsal surfac e of the hand where there is pain. No skin breakdown other than in the right third finger at the nail but no nail avulsion. No redness or warmth associated with any type of an infectious etiology at this point. Musculoskeletal: He does have some chronic back and neck pain but no worse than usual. He has pain associated with palpation over the right wrist and dorsal surface of the hand. No pain in the middle finger. DIFFERENTIAL DIAGNOSIS: After history and physical exam, differential diagnosis was considered for fever and hand/wrist injury. With his history of epidural abscess, would worry about problems associated with this, but he has no further pain in the back at this time. No other localizing symptoms that would explain the fever. Medical Decision Making Data Points Result Diagram: 04/15/18201904/15/182019 Laboratory Hematology Test 04/15/18 20:20 Red Blood Count 3.59 M/uL (4.00-5.60) Mean Corpuscular Volume 91.1 fL (80.0-96.0) Mean Corpuscular Hemoglobin 31.6 pg (26.0-33.0) Mean Corpuscular Hemoglobin Concent 34.7 g/dL (32.0-36.0) Red Cell Distribution Width 14.7 % (11.5-14.5) Mean Platelet Volume 7.6 fL (7.2-11.1) Neutrophils (%) (Auto) 70.0 % (39.4-72.5) Lymphocytes (%) (Auto) 16.6 % (17.6-49.6) Monocytes (%) (Auto) 12.8 % (4.1-12.4) Eosinophils (%) (Auto) 0.1 % (0.4-6.7) Basophils (%) (Auto) 0.5 % (0.3-1.4) Nucleated RBC Relative Count (auto) 0.0 /100WBC Neutrophils # (Auto) 6.8 K/uL (2.0-7.4) Lymphocytes # (Auto) 1.6 K/uL (1.3-3.6) Monocytes # (Auto) 1.2 K/uL (0.3-1.0) Eosinophils # (Auto) 0.0 K/uL (0.0-0.5) Basophils # (Auto) 0.0 K/uL (0.0-0.1) Nucleated RBC Absolute Count (auto) 0.00 K/uL Erythrocyte Sedimentation Rate 39 mm/HOUR (0-20) Sodium Level 136 mmol/L (137-145) Potassium Level 3.4 mmol/L (3.5-5.0) Chloride Level 101 mmol/L (98-107) Carbon Dioxide Level 25 mmol/L (22-30) Blood Urea Nitrogen 23 mg/dl (9-21) Creatinine 1.30 mg/dl (0.66-1.25) Glomerular Filtration Rate Calc 54.4 Random Glucose 104 mg/dl (75-110) Calcium Level 8.5 mg/dl (8.4-10.2) Total Bilirubin 0.7 mg/dl (0.2-1.3) Aspartate Amino Transf (AST/SGOT) 34 U/L (0-35) Alanine Aminotransferase (ALT/SGPT) 48 U/L (0-56) Alkaline Phosphatase 103 U/L (0-126) C-Reactive Protein 22.5 mg/dl (<1.0) Total Protein 6.6 g/dl (6.3-8.2) Albumin 3.5 g/dl (3.5-5.0) Chemistry Test 04/15/18 20:20 White Blood Count 9.7 k/uL (4.5-11.0) Red Blood Count 3.59 M/uL (4.00-5.60) Hemoglobin 11.3 g/dL (14.0-18.0) Hematocrit 32.7 % (42.0-52.0) Mean Corpuscular Volume 91.1 fL (80.0-96.0) Mean Corpuscular Hemoglobin 31.6 pg (26.0-33.0) Mean Corpuscular Hemoglobin Concent 34.7 g/dL (32.0-36.0) Red Cell Distribution Width 14.7 % (11.5-14.5) Platelet Count 211 K/uL (150-450) Mean Platelet Volume 7.6 fL (7.2-11.1) Neutrophils (%) (Auto) 70.0 % (39.4-72.5) Lymphocytes (%) (Auto) 16.6 % (17.6-49.6) Monocytes (%) (Auto) 12.8 % (4.1-12.4) Eosinophils (%) (Auto) 0.1 % (0.4-6.7) Basophils (%) (Auto) 0.5 % (0.3-1.4) Nucleated RBC Relative Count (auto) 0.0 /100WBC Neutrophils # (Auto) 6.8 K/uL (2.0-7.4) Lymphocytes # (Auto) 1.6 K/uL (1.3-3.6) Monocytes # (Auto) 1.2 K/uL (0.3-1.0) Eosinophils # (Auto) 0.0 K/uL (0.0-0.5) Basophils # (Auto) 0.0 K/uL (0.0-0.1) Nucleated RBC Absolute Count (auto) 0.00 K/uL Erythrocyte Sedimentation Rate 39 mm/HOUR (0-20) Glomerular Filtration Rate Calc 54.4 Calcium Level 8.5 mg/dl (8.4-10.2) Total Bilirubin 0.7 mg/dl (0.2-1.3) Aspartate Amino Transf (AST/SGOT) 34 U/L (0-35) Alanine Aminotransferase (ALT/SGPT) 48 U/L (0-56) Alkaline Phosphatase 103 U/L (0-126) C-Reactive Protein 22.5 mg/dl (<1.0) Total Protein 6.6 g/dl (6.3-8.2) Albumin 3.5 g/dl (3.5-5.0) EKG/Imaging Imaging Examination: Computed tomography right hand with contrast HISTORY: Recent fall with pain and swelling. TECHNIQUE: Transaxial computed tomography images are obtained of the right hand following the administration of 75 mL Isovue-370. Multiplanar reformatted images were created in the coronal and sagittal planes. One of the following dose optimization techniques was utilized in the performance of this exam: Automated exposure control; adjustment of the mA and/or kV according to the patient's size; or use of an iterative reconstruction technique. Specific details can be referenced in the facility's radiology CT exam operational policy. COMPARISON: Exam is reviewed in conjunction with today's wrist CT. FINDINGS: As seen on today's wrist CT, there is a minimally displaced intra-articular fracture involving the distal and dorsal margin of the capitate which extends into the joint space with the third metacarpal base. 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 See the wrist CT report for further detail. With respect to the hand, no acute fracture is identified of the metacarpals or the phalanges. There is an old healed fifth metacarpal neck fracture deformity. There is multifocal osteoarthritis identified. There is involvement of multiple metacarpophalangeal joints most pronounced at the first and the third metacarpophalangeal joints. 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 Severe osteoarthritis involves the DIP joint of the long finger. With respect to the soft tissues, there is dorsal subcutaneous edema overlying the metacarpal shafts. No well-defined fluid collection is seen to suggest an abscess. Correlate for swelling. Intrinsic musculature of the hand appears unremarkable. No atrophy or intramuscular fluid collection is identified. No fluid filled tendon sheaths are suggested. IMPRESSION: 1. Acute intra-articular fracture involving the dorsal margin of the distal right capitate which extends into the joint space with the third metacarpal. 2. Multifocal osteoarthritis of the right hand most severe involving the first and third metacarpophalangeal joints and the DIP joint of the ring finger. 3. Dorsal right hand subcutaneous edema/swelling without well-defined fluid collection. 4. Old healed fracture deformity of the fifth metacarpal. Report Dictated By: Shin Hay at 04/15/2018 9:53 PM ED Course/Re-evaluation Clinical Indication for ER IV: IV Access ED Course Labs show an elevated sedimentation rate and CRP but a normal white count. Labs otherwise unremarkable. CT scan does shows fracture as noted above. Blood cultures are pending. Again no localizing symptoms or history that would suggest why he has a fever. My feeling was that it was unrelated to the hand injury. I did call and speak with Dr. Anthony. He indicated the same thought, and recommended that he would work this up as a fever of unknown origin or something to do with his back with his history of the epidural abscess in the past. I did discuss all this with the patient and his . At this point he would like to wait and call his infectious disease doctor in the morning and I think that's fine. We did put him in a splint for his hand fracture and he can see Dr. Anthony in the office as an outpatient. Instructions as noted below including instructions on need to return for worsening symptoms. Decision to Disposition Date: Apr 15, 2018 Decision to Disposition Time: 22:49 Depart Departure Latest Vital Signs Vital Signs Date Time Temp Pulse Resp B/P (MAP) Pulse Ox O2 Delivery O2 Flow Rate FiO2 04/15/18 22:40 52 95 04/15/18 22:30 125/67 (86) 04/15/18 19:54 100.1 12 Room Air Impression: Primary Impression: Hand fracture, right Additional Impression: Fever Condition: Improved Disposition: HOME OR SELF-CARE Referrals: OPAL ANTHONY MD Patient Instructions: Hand Fracture (ED) Additional Instructions: We have splinted your hand fracture. Elevate while at rest. Apply ice every 1-2 hours while awake for about 15-20 minutes. Take Tylenol as needed for pain. See Dr. Anthony at [facility] for follow-up. He will be in the office all day tomorrow and can see you then, or you can call and schedule a follow-up at another time. We do not know what is causing your fevers. We do not think that this is related to your hand fracture. We worry about recurrence of your abscess you had in your spine in the past. If you have back pain, headache, worsening fever/chills, or other symptoms, please return for re-evaluation. We would need to consider further imaging and possibly spinal tap as we discussed. Call your infectious disease specialist tomorrow to discuss further. No changes to medication at this time. Problem Qualifiers Primary Impression: Hand fracture, right Encounter type: initial encounter Fracture type: closed Qualified Codes: S62.91XA - Unspecified fracture of right wrist and hand, initial encounter for closed fracture Additional Impression: Fever Fever type: unspecified Qualified Codes: R50.9 - Fever, unspecified ELIA JUDD MD Apr 15, 2018 20:09
[2018-04-15 20:32] LABS: PLATELET COUNT, AUTOMATED 211 K/uL (150-450)
[2018-04-15] MEDS ORDERED: IOPAMIDOL 76% 100 ML INFUS BTL 100 ML ONE (20:56)
--- NOTE | 2018-04-15 21:57 | RADIOLOGY IMAGING REPORT ---
FACILITY: [facility] [place] PATIENT NAME: Jah Crabtree : 1945 MR: [id number] V: [id number] EXAM DATE: ORDERING PHYSICIAN: ELIA JUDD TECHNOLOGIST: Location: [facility] Patient: Jah Crabtree : 1945 Visit/Account:[id number] Date of Sevice: 04/15/2018 Examination: Computed tomography right wrist with contrast HISTORY: Fall. Pain and swelling. History of pseudogout. TECHNIQUE: Transaxial computed 5 images are obtained of the right wrist following the administration of 75 mL of Isovue-370. Multiplanar reformatted images were created in the coronal and sagittal plane . One of the following dose optimization techniques was utilized in the performance of this exam: Autom ated exposure control; adjustment of the mA and/or kV according to the patient's size; or use of an i terative reconstruction technique. Specific details can be referenced in the facility's radiology C T exam operational policy. Comparison: Plain films of the wrist dated April 12, 2018 are reviewed. FINDINGS: There is an acute fracture identified involving the dorsal and distal margin of the capitate. There i s fracture line extension into the joint space between the capitate and the third metacarpal base. Th ere is minimal distraction at the fracture site. No other acute fracture deformity is identified at t he wrist. There is a joint effusion at the wrist with mild distention of the dorsal and volar joint spaces. Ext ensive changes of chondrocalcinosis are seen about the wrist. Correlate for CPPD arthropathy. There i s abnormal widening of the scapholunate joint which was suggested on the recent plain films. This is consistent with ligamentous instability at the scapholunate joint. This may be related to CPPD arthro francisca. There is probable early proximal migration of the capitate. Multifocal changes of osteoarthrit is are seen which involves the distal radioulnar joint, the radiocarpal joints, the joint space betwe en the lunate and the hamate, and the joint space between the lunate and the capitate. There is also triscaphe joint and first carpal metacarpal joint osteoarthritis present. Scattered atherosclerotic vascular calcifications are seen. There is soft tissue swelling seen dorsally at the wrist which extends to the dorsum of the hand. No well-defined fluid collection is seen to suggest abscess formation. IMPRESSION: 1. Acute intra-articular fracture involving the dorsal margin of the distal right capitate with fract ure line extension into the joint space between the capitate and the third metacarpal base. 2. 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 This may account for the joint space widening at the scapholunate joint space with early SLAC wrist. 3. Radiocarpal joint effusion. 4. Multifocal osteoarthritis as detailed above. Report Dictated By: Shin Hay at 04/15/2018 9:42 PM Report E-Signed By: Shin Hay at 04/15/2018 9:53 PM WSN:[id number]
--- NOTE | 2018-04-15 22:04 | RADIOLOGY IMAGING REPORT ---
FACILITY: [facility] PATIENT NAME: Jah Crabtree : 1945 MR: [id number] V: [id number] EXAM DATE: ORDERING PHYSICIAN: ELIA JUDD TECHNOLOGIST: Location: [facility] [place] Patient: Jah Crabtree : 1945 Visit/Account:[id number] Date of Sevice: 04/15/2018 Examination: Computed tomography right hand with contrast HISTORY: Recent fall with pain and swelling. TECHNIQUE: Transaxial computed tomography images are obtained of the right hand following the adminis tration of 75 mL Isovue-370. Multiplanar reformatted images were created in the coronal and sagittal planes. One of the following dose optimization techniques was utilized in the performance of this exam: Autom ated exposure control; adjustment of the mA and/or kV according to the patient's size; or use of an i terative reconstruction technique. Specific details can be referenced in the facility's radiology C T exam operational policy. COMPARISON: Exam is reviewed in conjunction with today's wrist CT. FINDINGS: As seen on today's wrist CT, there is a minimally displaced intra-articular fracture involving the di stal and dorsal margin of the capitate which extends into the joint space with the third metacarpal b ase. 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 See the wrist CT report f or further detail. With respect to the hand, no acute fracture is identified of the metacarpals or th e phalanges. There is an old healed fifth metacarpal neck fracture deformity. There is multifocal osteoarthritis identified. There is involvement of multiple metacarpophalangeal j oints most pronounced at the first and the third metacarpophalangeal joints. 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 Sever e osteoarthritis involves the DIP joint of the long finger. With respect to the soft tissues, there is dorsal subcutaneous edema overlying the metacarpal shafts. No well-defined fluid collection is seen to suggest an abscess. Correlate for swelling. Intrinsic mu sculature of the hand appears unremarkable. No atrophy or intramuscular fluid collection is identifie d. No fluid filled tendon sheaths are suggested. IMPRESSION: 1. Acute intra-articular fracture involving the dorsal margin of the distal right capitate which exte nds into the joint space with the third metacarpal. 2. Multifocal osteoarthritis of the right hand most severe involving the first and third metacarpopha langeal joints and the DIP joint of the ring finger. 3. Dorsal right hand subcutaneous edema/swelling without well-defined fluid collection. 4. Old healed fracture deformity of the fifth metacarpal. Report Dictated By: Shin Hay at 04/15/2018 9:53 PM Report E-Signed By: Shin Hay at 04/15/2018 10:01 PM WSN:[id number]
[2018-04-15 22:30] VITALS: BP 125/67
== END 2018-04-15 23:05 | disposition home or self-care (01) ==
LOC: ER 19:44
DX: S62.91XA Unspecified fracture of right hand, initial encounter for closed fracture (principal); R50.9 Fever, unspecified
CPT/HCPCS: 36415; 73201; 85025; 85651; 86140; 87040; 99284; Q9967; 82040; 82247; 82310; 82374; 82435; 82565; 82947; 84075; 84132; 84155; 84295; 84450; 84460; 84520; A4565; L3763

== ENCOUNTER 2018-04-23 18:12 | Inpatient (IN) | payer MEDICARE ==
[~2018-04-23] VITALS: Ht 167.6 cm; Wt 109.1 kg
[~2018-04-23 18:12] MED LIST changes: +DOXY-179 PO; +HYDR12.556 PO; +LEVO-3 PO
--- NOTE | 2018-04-23 18:40 | ER Report ---
History and Physical Time Seen By MD: 18:40 Hx. of Stated Complaint: PATIENT STATES THAT HE HAS RIGHT SHOULDER PAIN AND HIGH TEMP HPI/ROS CHIEF COMPLAINT: fevers, right neck/shoulder pain HISTORY OF PRESENT ILLNESS: This is a 73 year old male. He has been having fevers for the last few weeks. Saw him in the ER earlier this month for similar, unable to find a source. He has a history of epidural abscess in low back as well as osteomyelitis, and had interventions to drain and is on chronic Doxycycline therapy. After last visit, he contacted his infectious disease specialist and they are just watching and continuing the Doxy. He had a wrist injury with carpal fracture and is following up with orthopedic surgery and has a brace to allow this to heal. He is having worsening fever. Has some pain in the right ear tonight as well. Some pain diffusely on the right side of the neck and into the shoulder. This is mainly in the lateral trapezius and around the distal clavicle and scapula. No pain in the arm itself. Has no runny nose, sore throat or headache. He has chronic low back pain, unchanged. No abdominal pain, bowels with some constipation. No problems with urination. No cough or chest pain or shortness of breath. Allergies: Coded Allergies: morphine (Verified Allergy, Intermediate, nausea/vomiting, 04/15/18) Home Meds Active Scripts Tramadol Hcl (TRAMADOL HCL) 50 Mg Tablet, 50 MG PO TID PRN for PAIN, #30 TAB Prov:ABI GORDON MD 11/21/16 Vitamin B Cmplx/Vit C/Folic Ac (TRIPHROCAPS SOFTGEL) 1 Each Cap, 1 EACH PO QDAY, #30 CAP Prov:ABI GORDON MD 11/21/16 Ubiquinol (UBIQUINOL) 100 Mg Capsule, 100 MG PO QHS, #30 CAPSULE Prov:ABI GORDON MD 11/21/16 Sennosides/Docusate Sodium (SENNA-TIME S TABLET) 1 Each Tablet, 1 EACH PO BID, #60 TAB Prov:ABI GORDON MD 11/21/16 [Multivitamins Tab] 1 EA TAB No Conflict Check, 1 EACH PO QDAY, #30 TAB Prov:ABI GORDON MD 11/21/16 Metoprolol Succinate (METOPROLOL SUCCINATE) 50 Mg Tab.er.24h, 150 MG PO QDAY, #90 TAB Prov:ABI GORDON MD 11/21/16 Duloxetine Hcl (CYMBALTA) 30 Mg Capsule.dr, 60 MG PO QDAY, #30 CAP Prov:ABI GORDON MD 11/21/16 Cholecalciferol (Vitamin D3) (VITAMIN D) 1,000 Unit Tablet, 1000 UNIT PO QDAY, #30 TAB Prov:ABI GORDON MD 11/21/16 [Beta-Carotene(A) & E/Min Tab] 1 EA TAB No Conflict Check, 1 EACH PO BIDBS, #60 TAB Prov:ABI GORDON MD 11/21/16 Acetaminophen (ACETAMINOPHEN) 500 Mg Tablet, 1000 MG PO BID PRN for PAIN, #100 TAB Prov:ABI GORDON MD 11/21/16 Reported Medications Hydrochlorothiazide (HYDROCHLOROTHIAZIDE) 12.5 Mg Capsule, 1 TAB PO QDAY, CAPSULE 04/15/18 Doxycycline Hyclate (DOXYCYCLINE HYCLATE) 100 Mg Tablet, 100 MG PO QDAY 04/15/18 Levothyroxine Sodium (LEVOTHYROXINE SODIUM) 100 Mcg Tablet, 150 MCG PO QDAY, TAB 04/15/18 Gabapentin (GABAPENTIN) 300 Mg Capsule, 300-600 MG PO BID, CAPSULE 10/22/17 Warfarin Sodium (WARFARIN SODIUM) 5 Mg Tablet, 2.5 MG PO SAT, SUN, TAB 10/22/17 Warfarin Sodium (WARFARIN SODIUM) 5 Mg Tablet, 5 MG PO M-F, TAB 10/22/17 Lovastatin (LOVASTATIN) 40 Mg Tablet, 40 MG PO QPM 10/25/16 Tizanidine Hcl (TIZANIDINE HCL) 4 Mg Tablet, 4 MG PO HS 10/25/16 Tamsulosin Hcl (TAMSULOSIN HCL) 0.4 Mg Cap.er.24h, 0.4 MG PO QDAY, CAP 10/25/16 Omeprazole (OMEPRAZOLE) 20 Mg Tablet.dr, 20 MG PO QDAY, TAB 10/25/16 Guaifenesin (Guaifenesin ER) 600 Mg Tab.er.12h, 1 TAB PO BID 10/25/16 Fluticasone Prop 50 Mcg Ns (FLONASE 50 MCG NS) 16 Gm Waldron.susp, 2 SPRAYS NS QDAY, BOT 10/25/16 Cetirizine Hcl (ZYRTEC) 10 Mg Tablet, 10 MG PO QDAY, TAB 10/25/16 Reviewed Nurses Notes: Yes Hx Smoking: No Smoking Status: Never Smoker Hx Substance Use Disorder: No Hx Alcohol Use: No Constitutional Vital Sign - Last 24 Hours 04/23/18 04/23/18 04/24/18 04/24/18 18:22 18:30 00:16 00:30 Temp 101.7 99.2 Pulse 60 53 Resp 18 B/P (MAP) 124/83 128/69 (88) Pulse Ox 81 91 O2 Delivery Room Air O2 Flow Rate 2.0 04/24/18 04/24/18 04/24/18 04/24/18 01:05 01:30 02:00 02:00 B/P (MAP) 118/90 (99) 144/69 (94) 138/72 (94) 138/72 (94) 04/24/18 04/24/18 02:30 03:00 Pulse 52 52 B/P (MAP) 142/70 (94) 136/62 (86) Pulse Ox 96 95 Physical Exam General Appearance: The patient is alert. No acute distress. Non-toxic in appearance. Eyes: Pupils are equal, round. Reactive to light. No pallor, injection or icterus. Extraocular movements are intact. ENT: Mucous membranes are moist. Normal oral mucosa. Posterior oropharynx is n ormal. Normal nasal mucosa. Right TM is bulging, with slight redness superior portion as well as some redness on the bottom of the canal. Left side is normal. Neck: Supple and non tender. No lymphadenopathy. Respiratory: Lungs are clear to auscultation. There are no retractions or accessory muscle use. Cardiovascular: Regular rate and rhythm. No murmurs, gallops or rubs. Normal capillary refill. Gastrointestinal: Abdomen is soft and non tender. Nondistended. Normal active bowel sounds. Neurological: Alert and oriented x3. Moving all extremities. Moving the shoulder causes pain, but there are no deficits. Skin: Warm and dry. No rashes. Musculoskeletal: No pain with palpation of the neck or back at this time. Limited range of motion of right shoulder due to pain. Pain with palpation over AC joint, and over distal scapula. Pain and impingement symptoms. DIFFERENTIAL DIAGNOSIS: After history and physical exam, differential diagnosis was considered for ongoing fevers of unknown origin, with signs of possible otitis on right ear, although looks more like effusion with some inflammation. Shoulder pain uncertain, seems like rotator cuff related pain. Medical Decision Making Data Points Result Diagram: 04/23/18190104/23/181901 Laboratory Hematology Test 04/23/18 19:02 04/23/18 20:31 04/23/18 21:06 04/24/18 01:06 Red Blood Count 3.48 M/uL (4.00-5.60) Mean Corpuscular Volume 90.2 fL (80.0-96.0) Mean Corpuscular Hemoglobin 30.6 pg (26.0-33.0) Mean Corpuscular Hemoglobin Concent 33.9 g/dL (32.0-36.0) Red Cell Distribution Width 14.5 % (11.5-14.5) Mean Platelet Volume 7.1 fL (7.2-11.1) Neutrophils (%) (Auto) 77.7 % (39.4-72.5) Lymphocytes (%) (Auto) 10.5 % (17.6-49.6) Monocytes (%) (Auto) 11.6 % (4.1-12.4) Eosinophils (%) (Auto) 0.0 % (0.4-6.7) Basophils (%) (Auto) 0.2 % (0.3-1.4) Nucleated RBC Relative Count (auto) 0.0 /100WBC Neutrophils # (Auto) 9.1 K/uL (2.0-7.4) Lymphocytes # (Auto) 1.2 K/uL (1.3-3.6) Monocytes # (Auto) 1.4 K/uL (0.3-1.0) Eosinophils # (Auto) 0.0 K/uL (0.0-0.5) Basophils # (Auto) 0.0 K/uL (0.0-0.1) Nucleated RBC Absolute Count (auto) 0.00 K/uL Erythrocyte Sedimentation Rate 46 mm/HOUR (0-20) Sodium Level 132 mmol/L (137-145) Potassium Level 3.7 mmol/L (3.5-5.0) Chloride Level 93 mmol/L (98-107) Carbon Dioxide Level 29 mmol/L (22-30) Blood Urea Nitrogen 18 mg/dl (9-21) Creatinine 1.20 mg/dl (0.66-1.25) Glomerular Filtration Rate Calc 59.7 Random Glucose 109 mg/dl (75-110) Lactate 1.0 mmol/L (0.7-2.1) Calcium Level 8.5 mg/dl (8.4-10.2) Total Bilirubin 0.9 mg/dl (0.2-1.3) Aspartate Amino Transf (AST/SGOT) 101 U/L (0-35) Alanine Aminotransferase (ALT/SGPT) 132 U/L (0-56) Alkaline Phosphatase 181 U/L (0-126) C-Reactive Protein 30.5 mg/dl (<1.0) Total Protein 6.6 g/dl (6.3-8.2) Albumin 3.3 g/dl (3.5-5.0) Urine Color Gabby Urine Clarity Slightly-cloudy Urine pH 5.0 pH (4.8-9.5) Urine Specific [place] 1.020 Urine Protein 30 mg/dL (NEGATIVE) Urine Glucose (UA) Negative mg/dL (NEGATIVE) Urine Ketones Negative mg/dL (NEGATIVE) Urine Blood Negative (NEGATIVE) Urine Nitrite Negative (NEGATIVE) Urine Bilirubin Negative (NEGATIVE) Urine Urobilinogen 4.0 mg/dL (0.2-1.9) Urine Leukocyte Esterase Moderate (NEGATIVE) Urine RBC 7 /HPF (0-2/HPF) Urine WBC 7 /HPF (0-5/HPF) Urine Squamous Epithelial Cells Many /LPF (</=FEW) Urine Bacteria Negative /HPF (NONE-FEW) Urine Mucus None /HPF (NONE-FEW) Influenza Virus Type A (PCR) Negative (NEGATIVE) Influenza Virus Type B (PCR) Negative (NEGATIVE) Body Fluid WBC 11449 Body Fluid RBC 38921 Body Fluid Neutrophils 88 % Body Fluid Lymphocytes 3 % Body Fluid Monocytes 9 % Body Fluid Eosinophils 0 % Body Fluid Basophils 0 % Chemistry Test 04/23/18 19:02 04/23/18 20:31 04/23/18 21:06 04/24/18 01:06 White Blood Count 11.8 k/uL (4.5-11.0) Red Blood Count 3.48 M/uL (4.00-5.60) Hemoglobin 10.6 g/dL (14.0-18.0) Hematocrit 31.4 % (42.0-52.0) Mean Corpuscular Volume 90.2 fL (80.0-96.0) Mean Corpuscular Hemoglobin 30.6 pg (26.0-33.0) Mean Corpuscular Hemoglobin Concent 33.9 g/dL (32.0-36.0) Red Cell Distribution Width 14.5 % (11.5-14.5) Platelet Count 429 K/uL (150-450) Mean Platelet Volume 7.1 fL (7.2-11.1) Neutrophils (%) (Auto) 77.7 % (39.4-72.5) Lymphocytes (%) (Auto) 10.5 % (17.6-49.6) Monocytes (%) (Auto) 11.6 % (4.1-12.4) Eosinophils (%) (Auto) 0.0 % (0.4-6.7) Basophils (%) (Auto) 0.2 % (0.3-1.4) Nucleated RBC Relative Count (auto) 0.0 /100WBC Neutrophils # (Auto) 9.1 K/uL (2.0-7.4) Lymphocytes # (Auto) 1.2 K/uL (1.3-3.6) Monocytes # (Auto) 1.4 K/uL (0.3-1.0) Eosinophils # (Auto) 0.0 K/uL (0.0-0.5) Basophils # (Auto) 0.0 K/uL (0.0-0.1) Nucleated RBC Absolute Count (auto) 0.00 K/uL Erythrocyte Sedimentation Rate 46 mm/HOUR (0-20) Glomerular Filtration Rate Calc 59.7 Lactate 1.0 mmol/L (0.7-2.1) Calcium Level 8.5 mg/dl (8.4-10.2) Total Bilirubin 0.9 mg/dl (0.2-1.3) Aspartate Amino Transf (AST/SGOT) 101 U/L (0-35) Alanine Aminotransferase (ALT/SGPT) 132 U/L (0-56) Alkaline Phosphatase 181 U/L (0-126) C-Reactive Protein 30.5 mg/dl (<1.0) Total Protein 6.6 g/dl (6.3-8.2) Albumin 3.3 g/dl (3.5-5.0) Urine Color Gabby Urine Clarity Slightly-cloudy Urine pH 5.0 pH (4.8-9.5) Urine Specific [place] 1.020 Urine Protein 30 mg/dL (NEGATIVE) Urine Glucose (UA) Negative mg/dL (NEGATIVE) Urine Ketones Negative mg/dL (NEGATIVE) Urine Blood Negative (NEGATIVE) Urine Nitrite Negative (NEGATIVE) Urine Bilirubin Negative (NEGATIVE) Urine Urobilinogen 4.0 mg/dL (0.2-1.9) Urine Leukocyte Esterase Moderate (NEGATIVE) Urine RBC 7 /HPF (0-2/HPF) Urine WBC 7 /HPF (0-5/HPF) Urine Squamous Epithelial Cells Many /LPF (</=FEW) Urine Bacteria Negative /HPF (NONE-FEW) Urine Mucus None /HPF (NONE-FEW) Influenza Virus Type A (PCR) Negative (NEGATIVE) Influenza Virus Type B (PCR) Negative (NEGATIVE) Body Fluid WBC 97255 Body Fluid RBC 48289 Body Fluid Neutrophils 88 % Body Fluid Lymphocytes 3 % Body Fluid Monocytes 9 % Body Fluid Eosinophils 0 % Body Fluid Basophils 0 % Urinalysis Test 04/23/18 20:31 Urine Color Gab[place] Urine Clarity Slightly-cloudy Urine pH 5.0 pH (4.8-9.5) Urine Specific [place] 1.020 Urine Protein 30 mg/dL (NEGATIVE) Urine Glucose (UA) Negative mg/dL (NEGATIVE) Urine Ketones Negative mg/dL (NEGATIVE) Urine Blood Negative (NEGATIVE) Urine Nitrite Negative (NEGATIVE) Urine Bilirubin Negative (NEGATIVE) Urine Urobilinogen 4.0 mg/dL (0.2-1.9) Urine Leukocyte Esterase Moderate (NEGATIVE) Urine RBC 7 /HPF (0-2/HPF) Urine WBC 7 /HPF (0-5/HPF) Urine Squamous Epithelial Cells Many /LPF (</=FEW) Urine Bacteria Negative /HPF (NONE-FEW) Urine Mucus None /HPF (NONE-FEW) Microbiology Microbiology Date/Time Source Procedure Growth Status 04/24/18 01:06 Synovial Fluid Shoulder Gram Stain - Final Resulted 04/24/18 01:06 Synovial Fluid Shoulder Body Fluid Culture Pending Resulted EKG/Imaging Imaging CHEST PA AND LAT COMPARISONS: None. ADDITIONAL PERTINENT HISTORY: Right shoulder pain FINDINGS: Cardiomediastinal silhouette: Mild cardiomegaly. Pulmonary vasculature: Atherosclerotic disease of the thoracic aortic arch. Otherwise negative Lung jauregui: Bibasilar regions of scarring. Otherwise negative Pleural spaces: Negative. Osseous structures: Spondylitic change involving the thoracic spine. Osteoarthritic changes involving both shoulders. Ununited remote appearing fracture involving the distal left clavicle. Patient status post previous posterior interbody fusion at the thoracolumbar junction. Surrounding soft tissues: Negative. IMPRESSION: 1. Mild cardiomegaly. 2. No evidence of acute cardiopulmonary disease. Report Dictated By: Ventura Isabel MD at 04/23/2018 8:25 PM SHOULDER MIN 2 VIEWS RIGHT HISTORY: right shoulder pain Additional history: None COMPARISON: None. FINDINGS: No fractures identified the right shoulder girdle. No evidence of dislocation. There is glenohumeral joint space narrowing and there is a high riding humeral head which abuts the inferior surface of the acromion process. IMPRESSION: Negative for acute trauma. Chronic rotator cuff tear. Moderate glenohumeral arthropathy Report Dictated By: Benito Harris MD at 04/23/2018 8:36 PM CERVICAL SPINE 2 OR 3 VIEW HISTORY: right shoulder pain Additional history: None COMPARISON: None. FINDINGS: The cervical spine is only visualized to the level of C4-5 on the lateral view with shoulder soft tissues obscuring the lower cervical spine. Technologist was unable to obtain a adequate swimmer's view. There is advanced disc space narrowing at C2-C, 3-4, and-5 on the lateral view. No fractures are identified. IMPRESSION: Nondiagnostic study has the lower half of the cervical spine is obscured. 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 Recommend CT cervical spine for further diagnostic evaluation if patient cannot be cleared clinically. Report Dictated By: Benito Harris MD at 04/23/2018 8:29 PM MRI of the cervical spine and the shoulder, both with and without contrast. Preliminary results communicated by radiology, final results to be obtained in the morning. Enhancing fluid collection in the shoulder. No sign of infection or abscess in cervical spine MRI. ED Course/Re-evaluation Clinical Indication for ER IV: IV Access ED Course Initial evaluation shows elevation of the ESR and CRP again. The white count is elevated today as well. Negative lactate. Mild elevation of the liver function tests. Imaging negative for source of pain or source of fever, see above. MRI of the cervical spine and shoulder done with and without contrast based on location of pain. Has chronic rotator cuff tear. Arthrocentesis of the shoulder done after seeing the enhancing fluid collection on MRI. This was cloudy yellow and thick, not a normal inflammatory fluid, suspicious for infection. High cell count, but gram stain showed no organisms, and a lot of white cells. Discussed with Dr. Douglas, recommended admission with antibiotic therapy. Discussed with Dr. Crum, hospitalist, who accepted the patient for admission with orthopedic surgery to be consulted. They can also talk to the patient's infectious disease specialists as well. The patient and his are in agreement with this plan. Decision to Disposition Date: Apr 24, 2018 Decision to Disposition Time: 02:52 Depart Departure Latest Vital Signs Vital Signs Date Time Temp Pulse Resp B/P (MAP) Pulse Ox O2 Delivery O2 Flow Rate FiO2 04/24/18 03:00 52 136/62 (86) 95 04/24/18 00:16 99.2 04/23/18 18:30 2.0 04/23/18 18:22 18 Room Air Impression: Primary Impression: Septic arthritis of shoulder, right Additional Impression: Fever Condition: Condition Unchanged Disposition: Admitted from ER Problem Qualifiers Primary Impression: Septic arthritis of shoulder, right Septic arthritis organism: due to unspecified organism Qualified Codes: M00.9 - Pyogenic arthritis, unspecified Additional Impression: Fever Fever type: unspecified Qualified Codes: R50.9 - Fever, unspecified ELIA JUDD MD Apr 23, 2018 18:40
[2018-04-23 19:14] LABS: PLATELET COUNT, AUTOMATED 429 K/uL (150-450)
--- NOTE | 2018-04-23 20:31 | RADIOLOGY IMAGING REPORT ---
FACILITY: [facility] - [place] PATIENT NAME: Jah Crabtree : 1945 MR: [id number] V: [id number] EXAM DATE: ORDERING PHYSICIAN: ELIA JUDD TECHNOLOGIST: Location: [facility] [place] Patient: Jah Crabtree : 1945 Visit/Account:[id number] Date of Sevice: 04/23/2018 CHEST PA AND LAT COMPARISONS: None. ADDITIONAL PERTINENT HISTORY: Right shoulder pain FINDINGS: Cardiomediastinal silhouette: Mild cardiomegaly. Pulmonary vasculature: Atherosclerotic disease of the thoracic aortic arch. Otherwise negative Lung jauregui: Bibasilar regions of scarring. Otherwise negative Pleural spaces: Negative. Osseous structures: Spondylitic change involving the thoracic spine. Osteoarthritic changes involvin g both shoulders. Ununited remote appearing fracture involving the distal left clavicle. Patient stat us post previous posterior interbody fusion at the thoracolumbar junction. Surrounding soft tissues: Negative. IMPRESSION: 1. Mild cardiomegaly. 2. No evidence of acute cardiopulmonary disease. Report Dictated By: Ventura Isabel MD at 04/23/2018 8:25 PM Report E-Signed By: Ventura Isabel MD at 04/23/2018 8:26 PM WSN:[id number]
--- NOTE | 2018-04-23 20:39 | RADIOLOGY IMAGING REPORT ---
FACILITY: [facility] - [place] PATIENT NAME: Jah Crabtree : 1945 MR: [id number] V: [id number] EXAM DATE: ORDERING PHYSICIAN: ELIA JUDD TECHNOLOGIST: Location: [facility] Patient: Jah Crabtree : 1945 Visit/Account:[id number] Date of Sevice: 04/23/2018 CERVICAL SPINE 2 OR 3 VIEW HISTORY: right shoulder pain Additional history: None COMPARISON: None. FINDINGS: The cervical spine is only visualized to the level of C4-5 on the lateral view with shoulder soft tis sues obscuring the lower cervical spine. Technologist was unable to obtain a adequate swimmer's view . There is advanced disc space narrowing at C2-C, 3-4, and-5 on the lateral view. No fractures are identified. IMPRESSION: Nondiagnostic study has the lower half of the cervical spine is obscured. 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 Recommend CT cervical spine for further diagnostic evaluation if patient cannot be cleared clinically . Report Dictated By: Benito Harris MD at 04/23/2018 8:29 PM Report E-Signed By: Benito Harris MD at 04/23/2018 8:36 PM [id number]:[email or web address]
--- NOTE | 2018-04-23 20:42 | RADIOLOGY IMAGING REPORT ---
FACILITY: [facility] PATIENT NAME: Jah Crabtree : 1945 MR: [id number] V: [id number] EXAM DATE: ORDERING PHYSICIAN: ELIA JUDD TECHNOLOGIST: Location: [facility] Patient: Jah Crabtree : 1945 Visit/Account:[id number] Date of Sevice: 04/23/2018 SHOULDER MIN 2 VIEWS RIGHT HISTORY: right shoulder pain Additional history: None COMPARISON: None. FINDINGS: No fractures identified the right shoulder girdle. No evidence of dislocation. There is glenohumera l joint space narrowing and there is a high riding humeral head which abuts the inferior surface of t he acromion process. IMPRESSION: Negative for acute trauma. Chronic rotator cuff tear. Moderate glenohumeral arthropathy Report Dictated By: Benito Harris MD at 04/23/2018 8:36 PM Report E-Signed By: Benito Harris MD at 04/23/2018 8:38 PM WSN:[email or web address]
[2018-04-23] MEDS ORDERED: HYDROMORPHONE HCL 1 MG/ML SYRINGE IVP ONE ×2 (22:05→23:40)
[2018-04-23] MEDS ORDERED: GADOBENATE 529MG/1ML 15ML VIAL IVP ONE (23:07)
[2018-04-24 03:53] VITALS: BP 137/62
[2018-04-24] MEDS ORDERED: NS(*) 0.9% 1000 ML BAG 1,000 ML IV PRN (04:03)
[2018-04-24] MEDS ORDERED: INFLUENZA VIRUS VAC 0.5ML SYR IM ONLY ONE (04:05)
[2018-04-24] MEDS ORDERED: VANCOMYCIN(*) 1 GM VIAL 2 GM in NS(*) 0.9% 500 ML BAG 500 ML IVPB ONE (04:05)
[2018-04-24] MEDS ORDERED: ACETAMINOPHEN 325 MG TAB PO PRN (04:05)
[2018-04-24] MEDS ORDERED: ONDANSETRON 4 MG/2 ML VIAL IVP PRN (04:05)
[2018-04-24] MEDS ORDERED: FLUSH 10 ML SYR IVP PRN (04:05)
[2018-04-24] MEDS ORDERED: APAP/HYDROCODONE 325/5 TAB PO PRN (04:05)
[2018-04-24] MEDS ORDERED: NS(*) 0.9% 250 ML BAG 250 ML ONE (04:16)
[2018-04-24] MEDS ORDERED: POLYETHYLENE GLYCOL 17 GM PKT PO PRN (04:35)
--- NOTE | 2018-04-24 04:48 | History & Physical ---
History of Present Illness Chief Complaint R shoulder pain, swelling History of Present Illness 73M with PMHx afib on chronic anticoagulation, HTN, pseudogout, osteomyelitis and epidural abscess, presented with concern for increasing R shoulder pain and swelling for last week as well as several weeks fever. Arthrocentesis suspicious for infective vs inflammatory arthritis with > 20k WBC, 88% neutrophils and > 90k RBC. Dr Hallman consulted by ER who recommends admission for IV antibiotics, ortho happy to consult. Earlier this year he was treated for epidural abscess with recovery complicated by CONNIE needing hemodialysis. This was brought on by a combination of NSAID, contrast, and vancomycin. He reports he continued to receive vancomycin after this initial for several weeks/months. Follows with infectious disease specialist in [place] and has been following with Dr Rizo for R hand Fx. History Problems: (1) Chronic renal failure, stage 3 (moderate) Status: Chronic (2) HTN (hypertension) Status: Chronic (3) Hypothyroidism Status: Chronic (4) Chronic atrial fibrillation Status: Chronic (5) Hyperlipidemia Status: Chronic Home Meds Active Scripts Tramadol Hcl (TRAMADOL HCL) 50 Mg Tablet, 50 MG PO TID PRN for PAIN, #30 TAB Prov:ABI GORDON MD 11/21/16 Vitamin B Cmplx/Vit C/Folic Ac (TRIPHROCAPS SOFTGEL) 1 Each Cap, 1 EACH PO QDAY, #30 CAP Prov:ABI GORDON MD 11/21/16 Ubiquinol (UBIQUINOL) 100 Mg Capsule, 100 MG PO QHS, #30 CAPSULE Prov:ABI GORDON MD 11/21/16 Sennosides/Docusate Sodium (SENNA-TIME S TABLET) 1 Each Tablet, 1 EACH PO BID, #60 TAB Prov:ABI GORDON MD 11/21/16 [Multivitamins Tab] 1 EA TAB No Conflict Check, 1 EACH PO QDAY, #30 TAB Prov:ABI GORDON MD 11/21/16 Metoprolol Succinate (METOPROLOL SUCCINATE) 50 Mg Tab.er.24h, 150 MG PO QDAY, #90 TAB Prov:ABI GORDON MD 11/21/16 Duloxetine Hcl (CYMBALTA) 30 Mg Capsule.dr, 60 MG PO QDAY, #30 CAP Prov:ABI GORDON MD 11/21/16 Cholecalciferol (Vitamin D3) (VITAMIN D) 1,000 Unit Tablet, 1000 UNIT PO QDAY, #30 TAB Prov:ABI GORDON MD 11/21/16 [Beta-Carotene(A) & E/Min Tab] 1 EA TAB No Conflict Check, 1 EACH PO BIDBS, #60 TAB Prov:ABI GORDON MD 11/21/16 Acetaminophen (ACETAMINOPHEN) 500 Mg Tablet, 1000 MG PO BID PRN for PAIN, #100 TAB Prov:ABI GORDON MD 11/21/16 Reported Medications Hydrochlorothiazide (HYDROCHLOROTHIAZIDE) 12.5 Mg Capsule, 1 TAB PO QDAY, CAPSULE 04/15/18 Doxycycline Hyclate (DOXYCYCLINE HYCLATE) 100 Mg Tablet, 100 MG PO QDAY 04/15/18 Levothyroxine Sodium (LEVOTHYROXINE SODIUM) 100 Mcg Tablet, 150 MCG PO QDAY, TAB 04/15/18 Gabapentin (GABAPENTIN) 300 Mg Capsule, 300-600 MG PO BID, CAPSULE 10/22/17 Warfarin Sodium (WARFARIN SODIUM) 5 Mg Tablet, 2.5 MG PO SAT, SUN, TAB 10/22/17 Warfarin Sodium (WARFARIN SODIUM) 5 Mg Tablet, 5 MG PO M-F, TAB 10/22/17 Lovastatin (LOVASTATIN) 40 Mg Tablet, 40 MG PO QPM 10/25/16 Tizanidine Hcl (TIZANIDINE HCL) 4 Mg Tablet, 4 MG PO HS 10/25/16 Tamsulosin Hcl (TAMSULOSIN HCL) 0.4 Mg Cap.er.24h, 0.4 MG PO QDAY, CAP 10/25/16 Omeprazole (OMEPRAZOLE) 20 Mg Tablet.dr, 20 MG PO QDAY, TAB 10/25/16 Guaifenesin (Guaifenesin ER) 600 Mg Tab.er.12h, 1 TAB PO BID 10/25/16 Fluticasone Prop 50 Mcg Ns (FLONASE 50 MCG NS) 16 Gm [place].susp, 2 SPRAYS NS QDAY, BOT 10/25/16 Cetirizine Hcl (ZYRTEC) 10 Mg Tablet, 10 MG PO QDAY, TAB 10/25/16 Allergies: Coded Allergies: morphine (Verified Allergy, Intermediate, nausea/vomiting, 04/15/18) Hx Smoking: No Smoking Status: Never Smoker Caffeine Intake: Soda Caffeine/Cups Per Day: rarely Hx Alcohol Use: No Hx Substance Use Disorder: No Social Drug Use: Never Review of Systems Constitutional: Fever Respiratory: No Shortness of Breath, No Cough Gastrointestinal: No Nausea, No Vomiting Musculoskeletal: Pain (R shoulder, back) Exam Vital Signs Vital Signs Date Time Temp Pulse Resp B/P (MAP) Pulse Ox O2 Delivery O2 Flow Rate FiO2 04/24/18 03:53 98.5 50 16 137/62 (87) 90 Nasal Cannula 3.0 General Appearance: Alert, Awake, No Acute Distress Neuro: No Gross deficits Eyes: PERRLA ENT: Normal Cardiovascular: Normal Rhythm & Peripheral Pulses Respiratory: No Respiratory Distress (2L NC) GI: Abd Soft and Non-Tender Musculoskeletal: Other (R hand in brace, swelling of dorsum hand, no bovious erythema of hand) Extremities: Soft and Non Tender, Warm, Pulses, Perfused Integumentary: Skin Intact without Lesion / Mass (R hand 3rd digit has healing wound) Psych: Alert & Oriented X3 Medical Decision Making Data Points Result Diagram: 04/23/18190104/23/181901 Assessment and Plan Problems: (1) Fever Status: Acute Assessment & Plan: ESR and CRP elevated, R shoulder compatible with infectious arthritis on microscopy, could also be inflammatory such as pseudogout given history. Has been on chronic suppressive therapy with doxycycline. Gram stain negative, await results of cultures and crystal studies. Begin empiric vancomycin with 2g loading dose and anticipate 1.5g q12h maintenance dose. (2) Septic arthritis of shoulder, right Status: Acute Assessment & Plan: Working diagnosis given presentation and labs available. Empiric vancomycin as above. May discuss with ID doctor he sees and will request ortho consultation. (3) Chronic renal failure, stage 3 (moderate) Status: Chronic Assessment & Plan: GFR 54, likely some continued CKD after severe episode CONNIE early this year. Monitor closely, will give IV hydration post gadolinium in ER, also receiving vancomycin. Avoid NSAIDS, RAYNE etc. (4) Chronic atrial fibrillation Status: Chronic Assessment & Plan: Supratherapeutic INR over 5 as outpatient, recommended holding warfarin. Will hold and recheck INR Saturday morning. (5) Hypothyroidism Status: Chronic Assessment & Plan: Continue chronic 100mcg levothyroxine. Venous Thromboembolism Antithrombotics Is Pt On Any Antithrombotics?: Yes Exam Sepsis Risk: No Definite Risk Problem Qualifiers (1) Fever: Fever type: unspecified Qualified Codes: R50.9 - Fever, unspecified (2) Septic arthritis of shoulder, right: Septic arthritis organism: due to unspecified organism Qualified Codes: M00.9 - Pyogenic arthritis, unspecified ALEJANDRO TROTTER DO Apr 24, 2018 04:47
[2018-04-24] MEDS: LEVOTHYROXINE SOD 0.1 MG TAB PO SCH (05:56)
[2018-04-24] MEDS ORDERED: HYDROmorphone HCL 2 MG/ML SDV IVP ONE (06:05)
[2018-04-24 07:15] VITALS: BP 118/57
--- NOTE | 2018-04-24 08:22 | RADIOLOGY IMAGING REPORT ---
FACILITY: [facility] - [place] PATIENT NAME: Jah Crabtree : 1945 MR: [id number] V: [id number] EXAM DATE: ORDERING PHYSICIAN: ELIA JUDD TECHNOLOGIST: Location: [facility] Patient: Jah Crabtree : 1945 Visit/Account:[id number] Date of Sevice: 04/23/2018 EXAMINATION: MRI Cervical spine without and with intravenous contrast HISTORY: Right shoulder and neck pain. Fever. COMPARISON: Cervical spine radiographs dated 04/23/2018. TECHNIQUE: Multi-planar, multi-sequence cervical spine MRI was performed before and after IV contras t. CONTRAST: 15 mL of IV MultiHance FINDINGS: Alignment: Slight reversal of the normal lordosis. 2 mm of anterior listhesis of C7 over T1 and retro listhesis of T1 over T2. Vertebral marrow signal: Mild discogenic bone marrow edema at a few levels, most severe at T1-T2. Cranio-cervical junction: Degenerative changes in the atlantodental joint. Normal alignment. Visualized posterior fossa: Negative. Soft tissues: Negative. Cervical cord: Negative. Enhancement pattern: Mild reactive bone marrow enhancement at a few levels. Otherwise negative. Disc Spaces: C1-2: No significant stenosis. C2-3: Probable solid interbody fusion with mild circumferential osteophytic ridge, facet hypertrophy, and mild ligamentum flavum thickening. Mild to moderate spinal canal and bilateral neural foraminal stenosis. C3-4: Circumferential disc osteophyte complex, facet hypertrophy, and mild ligamentum flavum thickeni ng. Mild to moderate spinal canal and bilateral neural foraminal stenosis. C4-5: Circumferential disc osteophyte complex, facet hypertrophy, and mild ligamentum flavum thickeni ng. Mild to moderate spinal canal and bilateral neural foraminal stenosis. C5-6: Circumferential disc osteophyte complex, facet hypertrophy, and mild ligamentum flavum thickeni ng. Moderate spinal canal and bilateral neural foraminal stenosis. C6-7: Circumferential disc osteophyte complex, facet hypertrophy, and ligamentum flavum thickening. M oderately severe spinal canal and bilateral neural foraminal stenosis. C7-T1: 2 mm of anterior listhesis. Circumferential disc osteophyte complex, facet hypertrophy, and li gamentum flavum thickening. Moderately severe spinal canal stenosis. Mild to moderate bilateral neura l foraminal stenosis. Upper thoracic spine: T1-T2: 2 mm of retrolisthesis. Circumferential disc osteophyte complex, facet hypertrophy, and ligame ntum flavum thickening. Mild to moderate spinal canal and bilateral neural foraminal stenosis. T2-T3: Circumferential disc osteophyte complex, facet hypertrophy, and ligamentum flavum thickening. Mild spinal canal and neural foraminal stenosis. IMPRESSION: 1. No acute abnormality. 2. Advanced multilevel cervical spondylosis. Report Dictated By: Jose Daniel Galeana MD at 04/24/2018 7:47 AM Report E-Signed By: Jose Daniel Galeana MD at 04/24/2018 8:18 AM WSN:[id number]
--- NOTE | 2018-04-24 08:44 | RADIOLOGY IMAGING REPORT ---
FACILITY: [facility] PATIENT NAME: Jah Crabtree : 1945 MR: [id number] V: [id number] EXAM DATE: ORDERING PHYSICIAN: ELIA JUDD TECHNOLOGIST: Location: [facility] - [place] Patient: Jah Crabtree : 1945 Visit/Account:[id number] Date of Sevice: 04/23/2018 SHOULDER RIGHT W W/O CONTRAST INDICATIONS: Right shoulder and neck pain. Fever. DATE: 04/23/2018 8:42 PM TECHNIQUE: Multisequence, multiplanar noncontrast MR imaging was performed of the right shoulder. COMPARISON: Shoulder radiographs April 23, 2018. FINDINGS: ROTATOR CUFF: The supraspinatus is completely torn, and the tendon stump is retracted medial to the g lenoid rim. The inferior portion of the infraspinatus is intact with some fraying on both the articul ar and bursal sided surfaces. The cranial fibers are completely torn. Similarly, a few subscapularis fibers are intact inferiorly, but almost the entire tendon is torn. Teres minor remains intact. There is severe fatty atrophy of the supraspinatus and infraspinatus. Fatty atrophy of the subscapularis i s minor. BICEPS LABRAL COMPLEX: The long head biceps tendon is ill-defined intracapsular A and is likely torn. The labrum is diffusely degenerated. OSSEOUS STRUCTURE: The humeral head is translated superiorly and abuts the acromion secondary to rota tor cuff deficiency. There is marked edema adjacent to the AC joint with a small AC joint effusion. D egenerative findings are severe. MISCELLANEOUS: A glenohumeral effusion is small. Susceptibility artifact superiorly and laterally is likely from prior instrumentation. There are large areas of cartilage loss in the glenoid and at the humeral head. IMPRESSION: 1. Massive rotator cuff tear. The supraspinatus is completely torn with the stump retracted medial to the glenoid rim. Only a few infraspinatus fibers remain intact. Almost all of the subscapularis is t orn. Fatty infiltration of both the infraspinatus and supraspinatus is severe. 2. The long head biceps tendon is likely torn. 3. Marked edema pattern adjacent to the AC joint is likely degenerative in nature. 4. Severe glenohumeral degenerative change. Report Dictated By: Doris Burgess MD at 04/24/2018 8:16 AM Report E-Signed By: Doris Burgess MD at 04/24/2018 8:39 AM WSN:[id number]
[2018-04-24] MEDS ORDERED: COLCHICINE 0.6 MG TAB PO ONE ×2 (09:00→13:00)
[2018-04-24] MEDS: DULoxetine HCL 30 MG CAPCR PO SCH (09:13)
[2018-04-24] MEDS: cefTRIAXone 2 GM VIAL IVP SCH (09:13)
[2018-04-24] MEDS: GABAPENTIN 300 MG CAP PO SCH ×2 (09:14→20:20)
[2018-04-24] MEDS: CETIRIZINE HCL 10 MG TAB PO SCH (09:14)
[2018-04-24] MEDS: PANTOPRAZOLE SOD 40 MG TABEC PO SCH (09:14)
[2018-04-24] MEDS: HYDROCHLOROTHIAZIDE 25 MG TAB PO SCH (09:14)
[2018-04-24] MEDS: TAMSULOSIN HCL 0.4 MG CAP PO SCH (09:14)
[2018-04-24] MEDS: DOCUSATE SODIUM 100 MG CAP PO SCH ×2 (09:14→20:20)
[2018-04-24] MEDS: METOPROLOL SUCC XL 50 MG TABCR 50 MG TAB.ER.24H PO SCH (09:18)
--- NOTE | 2018-04-24 10:05 | Hospitalist Progress Note ---
Subjective Progress Notes Subjective He reports feeling "a little better" this AM. Less pain. No fever. Physical Exam Vital Signs Date Time Temp Pulse Resp B/P (MAP) Pulse Ox O2 Delivery O2 Flow Rate FiO2 04/24/18 07:20 94 Nasal Cannula 3.0 04/24/18 07:15 98.3 51 16 118/57 (77) Intake and Output 04/24/18 07:00 Intake Total 300 ml Balance 300 ml Intake Oral 300 ml # Voids 1 # Bowel Movements 1 General Appearance: Alert, Awake Cardiovascular: Other (Regular with distant tones) Respiratory: Clear to Auscultation GI: Soft and Non-Tender Extremities: Warm, Perfused, Other (Right shoulder with decreased ROM all planes/possible small effusion/no callor noted at this time. Right wrist and hand with some edema on dorsum of hand/no obvious effusion/no callor.) Psych: Alert & Oriented X3 Result Diagram: 04/23/18190104/23/181901 Assessment and Plan Problems: (1) Fever Status: Acute Assessment & Plan: He is afebrile since admission. ESR and CRP are elevated, R shoulder arthrocentesis compatible with infectious arthritis on microscopy, but could also be inflammatory such as pseudogout given his history. He has been on chronic suppressive therapy with doxycycline following his infection this past spring/summer. The gram stain is negative. Will continue IV antibiotics with vancomycin and Rocephin until cultures back. Apparently, crystal studies were not performed. Will get this done. Discuss with orthopedics. (2) Septic arthritis of shoulder, right Status: Acute Assessment & Plan: Working diagnosis given presentation and labs available. Empiric vancomycin and Rocephin as above. Will discuss with orthopedics. (3) Chronic renal failure, stage 3 (moderate) Status: Chronic Assessment & Plan: Creatinine is 1.2 this admission. Monitor closely. Will give IV hydration (post gadolinium in ER). Avoid nephrotoxic drugs as possible. (4) Chronic atrial fibrillation Status: Chronic Assessment & Plan: Supra-therapeutic INR over 5 as outpatient. Will hold warfarin. Recheck INR daily. (5) Hypothyroidism Status: Chronic Assessment & Plan: Continue chronic 100mcg levothyroxine. Exam Sepsis Risk: No Definite Risk Problem Qualifiers (1) Fever: Fever type: unspecified Qualified Codes: R50.9 - Fever, unspecified (2) Septic arthritis of shoulder, right: Septic arthritis organism: due to unspecified organism Qualified Codes: M00.9 - Pyogenic arthritis, unspecified DERRICK GORDON MD Apr 24, 2018 10:05
[2018-04-24 11:28] LABS: INR 4.11
[2018-04-24] MEDS: NS(*) 0.9% 1000 ML BAG 1,000 ML IV PRN (11:32)
[2018-04-24 14:36] VITALS: BP 145/79
[2018-04-24 15:56] VITALS: Ht 167.6 cm; Wt 109.1 kg
[2018-04-24] MEDS: VANCOMYCIN(*) 1 GM VIAL 1 GM, VANCOMYCIN (*) 0.5 GM VIAL 0.5 GM in NS(*) 0.9% 250 ML BA... IVPB SCH (17:38)
[2018-04-24 18:37] VITALS: BP 129/69
[2018-04-24] MEDS: LOVASTATIN 20 MG TAB PO SCH (20:20)
[2018-04-24 23:08] VITALS: BP 129/68
[2018-04-25] MEDS: LEVOTHYROXINE SOD 0.1 MG TAB PO SCH (05:17)
[2018-04-25 06:00] LABS: PLATELET COUNT, AUTOMATED 391 K/uL (150-450)
[2018-04-25 06:09] LABS: INR 4.15
[2018-04-25] MEDS: VANCOMYCIN(*) 1 GM VIAL 1 GM, VANCOMYCIN (*) 0.5 GM VIAL 0.5 GM in NS(*) 0.9% 250 ML BA... IVPB SCH ×2 (06:37→18:12)
[2018-04-25 07:32] VITALS: BP 132/73
[2018-04-25] MEDS: DULoxetine HCL 30 MG CAPCR PO SCH (08:45)
[2018-04-25] MEDS: HYDROCHLOROTHIAZIDE 25 MG TAB PO SCH (08:45)
[2018-04-25] MEDS: PANTOPRAZOLE SOD 40 MG TABEC PO SCH (08:45)
[2018-04-25] MEDS: CETIRIZINE HCL 10 MG TAB PO SCH (08:45)
[2018-04-25] MEDS: METOPROLOL SUCC XL 50 MG TABCR 50 MG TAB.ER.24H PO SCH (08:45)
[2018-04-25] MEDS: TAMSULOSIN HCL 0.4 MG CAP PO SCH (08:45)
[2018-04-25] MEDS: DOCUSATE SODIUM 100 MG CAP PO SCH ×2 (08:45→20:08)
[2018-04-25] MEDS: cefTRIAXone 2 GM VIAL IVP SCH (08:46)
[2018-04-25] MEDS: GABAPENTIN 300 MG CAP PO SCH ×2 (08:46→20:08)
[2018-04-25] MEDS ORDERED: predniSONE 10 MG TAB PO ONE (09:00)
--- NOTE | 2018-04-25 09:16 | Hospitalist Progress Note ---
Subjective Progress Notes Subjective This patient was admitted for pain and swelling in the shoulder. He had no acute events overnight. Patient Complains of: Cardiovascular: No: Chest Pain Respiratory: No: Shortness of Breath Physical Exam Vital Signs Date Time Temp Pulse Resp B/P (MAP) Pulse Ox O2 Delivery O2 Flow Rate FiO2 04/25/18 08:13 90 Nasal Cannula 1.5 04/25/18 07:32 97.9 74 18 132/73 (92) Intake and Output 04/25/18 07:00 Intake Total 1957 ml Balance 1957 ml Intake Oral 942 ml IV Total 1015 ml # Voids 6 Cardiovascular: Regular Rate and Rhythm Respiratory: Clear to Auscultation Result Diagram: 04/25/18 0510 04/25/18 0510 Item Value Date Time Body Fluid Crystals Present 04/24/18 010 Item Value Date Time Gram Stain - Final Resulted 04/24/18105 Synovial Fluid Shoulder Urine Culture - Preliminary Resulted 04/23/182030 Clean Catch Midstream Ur NO GROWTH SO FAR, SET LATE. REINCUBATED Blood Culture - Preliminary Resulted 04/23/18 192 Blood NO GROWTH AFTER 1 DAY, REINCUBATED Blood Culture - Preliminary Resulted 04/23/18 190 Blood NO GROWTH AFTER 1 DAY, REINCUBATED Assessment and Plan Problems: (1) Pseudogout Status: Resolved Assessment & Plan: He did present with pain in the right shoulder and fever. F luid analysis has revealed that there are calcium crystals present. He was given a dose of colchicine last night with no significant improvement. We will try him on a low dose prednisone taper today. (2) Fever Status: Acute Assessment & Plan: He did present with a fever, and there was initially concern that he might have a septic arthritis. He has been on empiric treatment with ceftriaxone and vancomycin. The plan is to discontinue the antibiotics if his cultures remain negative at 48hrs. (3) Chronic renal failure, stage 3 (moderate) Status: Chronic (4) Chronic atrial fibrillation Status: Chronic Assessment & Plan: He is on chronic treatment with warfarin. His INR was elevated at admission, and his warfarin has been on hold. Daily INR is ordered. (5) Hypothyroidism Status: Chronic Assessment & Plan: He is on chronic treatment with levothyroxine. Exam Sepsis Risk: No Definite Risk Problem Qualifiers (1) Fever: Fever type: unspecified Qualified Codes: R50.9 - Fever, unspecified YECENIA CUELLAR DO Apr 25, 2018 09:15
--- NOTE | 2018-04-25 11:15 | Medical Nutrition Therapy ---
Nutrition Anthropometrics Height (Inches): 66.00 Height (Calculated Centimeters: 167.808861 Weight (Pounds): 240 Weight (Calculated Kilograms): 109.089 BMI: 38.8 Emeka Nutrition Score: Adequate Emeka Nutrition Risk Score: 19 Dietary Referral Nutrition Risk Factors: Special Diet Nutrition Risk Comment: Physical Findings Physical Appearance: Obese BMI 30-39 Skin Appearance Skin Appearance: Edema Edema Location Modifier: Both Edema Location: Lower Extremity Type of Edema: Degree of Edema: Gastrointestinal Symptoms GI Symtoms: Tube Present: Bowel Sounds: Recent Bowel Pattern: Stool Characteristics: Brown, Formed Nutritional Diagnosis Nutritional Risk Acuity 1: Acute/ES Renal Nutritional Risk Acuity 2: Sepsis Nutritional Risk Acuity 3: Fair Appetite Past Medical History: CAD, CKD-3, HTN, Hypothyroidism, Atrial fibrillation, Hyperlipidemia Nutritional Acuity: 2-Moderate Nutrition Diagnosis: Inadequate Food Intake Nutrition Etiology: Physiological Causes Nutrition Problem/Etiology/Sym: Inadequate Oral Intake related to decreased ability to consume sufficient energy, e.g. decreased appetite AEB reports of insufficient intake of energy from diet when compared to requirements. Energy Requirement: 2100 ([place] Jeor: IBW X 1.5) Protein Requirement: 57 (IBW Kg X 08) Fluid Requirement: 2100 Diet Type: Diet as Tolerated JIMMY/REG Nutrition Intervention: Cont diet as ordered, Encourage intake Do Not Serve Any of the Follow: Broccoli, Brussel Sprouts, Spinach, Banner Lettuce, Cranberry Juice Nutrition Monitoring & Eval Nutrition Goals: Eat 75-100% Meal RD Patient Assessment Time: [address] Assessment Type: RD Assessment Patient Nutrition Acuity: 2-Moderate Follow Up Date: Apr 27, 2018 Nutritional Comment: 04/24 Pt admitted with Septic arthritis of shoulder, WBC 11.8. pt on regular diet and eating 50-100%. Alb 3.3. Will cont to monitor and encourage intake. BK 04/25/18 Alb 2.7, CRP 30.5, High AST/ALT. Class II obesity with BMI of 38.8. Contiunes to consume approx. 50-100% of meals. Prednisone may increase Glu levels. Follow intake, labs, etc. -LULU ALEGRE Apr 25, 2018 11:15
[2018-04-25] MEDS ORDERED: ASCO-182 PO (13:54)
[2018-04-25] MEDS ORDERED: TRAM-420 PO (13:54)
[2018-04-25] MEDS ORDERED: OXYC-865 PO (13:54)
[2018-04-25] MEDS ORDERED: LEVO150T78 PO (13:54)
[2018-04-25] MEDS ORDERED: FINA5TAB67 PO (14:02)
[2018-04-25] MEDS: NS(*) 0.9% 1000 ML BAG 1,000 ML IV PRN (14:33)
[2018-04-25] MEDS ORDERED: DULO60CA7 PO (14:35)
[2018-04-25] MEDS ORDERED: METO200T12 PO (14:35)
[2018-04-25] MEDS ORDERED: GABA-549 PO (14:35)
--- NOTE | 2018-04-25 15:16 | Antimicrobial Stewardship ---
Antimicrobial Stewardship Empiricly appropriate: Yes (History of epidural abscess ) Significant PMH: Yes Support empiric regimen: Yes Comment Febrile on admit, WBCs elevated, complaints of shoulder pain Approriate Cultures done: Yes (Blood Cx pending, Shoulder aspirate pending) Gram stain show Microbs: No Organism identified: No Serum concentration checked: Yes Comment Trough 13.64, goal 15-20 Reviewed for Drug Interaction: Yes Monitored for Toxicities: Yes Clinically stable/improving: Yes IV to PO Opportunity: No Determine cumulative duration: culture pending, d/c antibiotics when culture negative Verified plan for regimen: Yes Comment 73 yo M with history of epidural abscess one year ago, presented with leukocytosis and fever, complains of shoulder pain. PMH of a fib, CONNIE, HTN, pseudogout, osteomyelitis and epidural abscess. History of weeks of fever and R shoulder pain and swelling. Arthrocentesis with >94641 leukocytes, 88% neutrophils and >90K RBC. Follows with ID in [place]. On chronic suppression with doxycycline. Continue vancomycin and ceftriaxone until cultures are negative. Most likely pseudogout attack, on colchicine, prednisone. Watch closely for signs and symptoms of infection. Mayte Son, PharmD, BCOP MAYTE SON Apr 25, 2018 15:13
[2018-04-25 16:12] VITALS: BP 170/85
[2018-04-25 18:34] VITALS: BP 144/91
[2018-04-25] MEDS ORDERED: DILT240C76 PO (19:33)
[2018-04-25] MEDS: LOVASTATIN 20 MG TAB PO SCH (20:09)
[2018-04-26] MEDS: VANCOMYCIN(*) 1 GM VIAL 1 GM, VANCOMYCIN (*) 0.5 GM VIAL 0.5 GM in NS(*) 0.9% 250 ML BA... IVPB SCH (05:27)
[2018-04-26] MEDS: LEVOTHYROXINE SOD 0.1 MG TAB PO SCH (05:27)
[2018-04-26 07:38] VITALS: BP 157/79
[2018-04-26] MEDS ORDERED: predniSONE 10 MG TAB PO SCH (09:00)
[2018-04-26] MEDS ORDERED: predniSONE 5 MG TAB PO ONE (09:00)
[2018-04-26] MEDS ORDERED: predniSONE 1 MG TAB PO ONE (09:00)
[2018-04-26] MEDS: TAMSULOSIN HCL 0.4 MG CAP PO SCH (09:45)
[2018-04-26] MEDS: cefTRIAXone 2 GM VIAL IVP SCH (09:45)
[2018-04-26] MEDS: DOCUSATE SODIUM 100 MG CAP PO SCH (09:46)
[2018-04-26] MEDS: GABAPENTIN 300 MG CAP PO SCH (09:46)
[2018-04-26] MEDS: HYDROCHLOROTHIAZIDE 25 MG TAB PO SCH (09:46)
[2018-04-26] MEDS: DULoxetine HCL 30 MG CAPCR PO SCH (09:46)
[2018-04-26] MEDS: PANTOPRAZOLE SOD 40 MG TABEC PO SCH (09:46)
[2018-04-26] MEDS: CETIRIZINE HCL 10 MG TAB PO SCH (09:47)
[2018-04-26] MEDS: METOPROLOL SUCC XL 50 MG TABCR 50 MG TAB.ER.24H PO SCH (09:47)
[2018-04-26] MEDS ORDERED: PRED-1 PO (12:55)
--- NOTE | 2018-04-26 13:00 | Hospitalist Depart ---
Discharge Summary Reason for Hosp/Final Diag: (1) Pseudogout Status: Resolved Hospital Course & Plan: He did present with pain in the right shoulder and fever. Fluid analysis has revealed that there are calcium crystals present. He was given a dose of colchicine last night with no significant improvement. improved with low dose prednisone, will continue for short course outpatient. (2) Fever Status: Acute Hospital Course & Plan: He did present with a fever, and there was initially concern that he might have a septic arthritis. He has been on empiric treatment with ceftriaxone and vancomycin. Cultures negative at 48 hours and antibiotics were stopped. (3) Chronic renal failure, stage 3 (moderate) Status: Chronic (4) Chronic atrial fibrillation Status: Chronic Hospital Course & Plan: He is on chronic treatment with warfarin. His INR was elevated at admission, and his warfarin has been on hold. Hold warfarin until Saturday then restart, follow up INR with PCP. (5) Hypothyroidism Status: Chronic Hospital Course & Plan: He is on chronic treatment with levothyroxine. Departure Weight (Pounds): 240 Weight (Ounces): 8.0 Result Diagram: 04/25/18 0510 04/26/18 0506 Condition: Improved Discharge: Home Discharge Instructions Home Meds Active Scripts Vitamin B Cmplx/Vit C/Folic Ac (TRIPHROCAPS SOFTGEL) 1 Each Cap, 1 EACH PO QDAY, #30 CAP Prov:ABI GORDON MD 11/21/16 Ubiquinol (UBIQUINOL) 100 Mg Capsule, 100 MG PO QHS, #30 CAPSULE Prov:ABI GORDON MD 11/21/16 Sennosides/Docusate Sodium (SENNA-TIME S TABLET) 1 Each Tablet, 1 EACH PO BID, #60 TAB Prov:ABI GORDON MD 11/21/16 [Multivitamins Tab] 1 EA TAB No Conflict Check, 1 EACH PO QDAY, #30 TAB Prov:ABI GORDON MD 11/21/16 Cholecalciferol (Vitamin D3) (VITAMIN D) 1,000 Unit Tablet, 1000 UNIT PO QDAY, #30 TAB Prov:ABI GORDON MD 11/21/16 [Beta-Carotene(A) & E/Min Tab] 1 EA TAB No Conflict Check, 1 EACH PO BIDBS, #60 TAB Prov:ABI GORDON MD 11/21/16 Reported Medications Diltiazem Hcl (DILTIAZEM 24HR ER) 240 Mg Cap.er.24h, 240 MG PO QDAY SIG: TAKE ONE CAPSULE BY MOUTH ONCE DAILY FOR VENTRICULAR RATE CONTROL IN ATRIAL FIBRILLATION 04/25/18 Gabapentin (GABAPENTIN) 300 Mg Capsule, 600 MG PO QPM, CAPSULE Sig says to take 1 capsule qam and 2 capsules qpm. 04/25/18 Duloxetine HCl (Duloxetine HCl) 60 Mg Capsule.dr, 60 MG PO QDAY 04/25/18 Metoprolol Succinate (METOPROLOL SUCCINATE) 200 Mg Tab.er.24h, 0.5 TAB PO QAM, TAB 04/25/18 Finasteride (FINASTERIDE) 5 Mg Tablet, 5 MG PO QDAY 04/25/18 Oxycodone Hcl/Acetaminophen (PERCOCET 5-325 MG TABLET) 1 Each Tablet, 1 EACH PO Q4-6H PRN for PAIN, TAB 04/25/18 Ascorbic Acid (VITAMIN C) 500 Mg Tablet, 500 MG PO QDAY, TAB 04/25/18 Tramadol Hcl (TRAMADOL HCL) 50 Mg Tablet, 50 MG PO Q6H PRN for PAIN, TAB Sig says the pt. may take up to two tablets for severe pain. 04/25/18 Levothyroxine Sodium (LEVOTHYROXINE SODIUM) 150 Mcg Tablet, 150 MCG PO QDAY 04/25/18 Hydrochlorothiazide (HYDROCHLOROTHIAZIDE) 12.5 Mg Capsule, 1 TAB PO QDAY, CAPSULE 04/15/18 Doxycycline Hyclate (DOXYCYCLINE HYCLATE) 100 Mg Tablet, 100 MG PO QDAY 04/15/18 Gabapentin (GABAPENTIN) 300 Mg Capsule, 300 MG PO QAM, CAPSULE Sig says to take 1 capsule qam and 2 capsules qpm. 10/22/17 Warfarin Sodium (WARFARIN SODIUM) 5 Mg Tablet, 2.5 MG PO SAT, SAT, TAB 10/22/17 Warfarin Sodium (WARFARIN SODIUM) 5 Mg Tablet, 5 MG PO -, TAB 10/22/17 Lovastatin (LOVASTATIN) 40 Mg Tablet, 40 MG PO QPM 10/25/16 Tizanidine Hcl (TIZANIDINE HCL) 4 Mg Tablet, 4 MG PO TID Sig says to take 1 tab PO TID PRN for spasms. 10/25/16 Tamsulosin Hcl (TAMSULOSIN HCL) 0.4 Mg Cap.er.24h, 0.4 MG PO QDAY, CAP 10/25/16 Omeprazole (OMEPRAZOLE) 20 Mg Tablet.dr, 20 MG PO QDAY, TAB 10/25/16 Guaifenesin (Guaifenesin ER) 600 Mg Tab.er.12h, 1 TAB PO BID 10/25/16 Fluticasone Prop 50 Mcg Ns (FLONASE 50 MCG NS) 16 Gm [place].susp, 2 SPRAYS NS QDAY, BOT 10/25/16 Cetirizine Hcl (ZYRTEC) 10 Mg Tablet, 10 MG PO QDAY, TAB 10/25/16 Discontinued Reported Medications Levothyroxine Sodium (LEVOTHYROXINE SODIUM) 100 Mcg Tablet, 150 MCG PO QDAY, TAB 04/15/18 Discontinued Scripts Tramadol Hcl (TRAMADOL HCL) 50 Mg Tablet, 50 MG PO TID PRN for PAIN, #30 TAB Prov:ABI GORDON MD 11/21/16 Metoprolol Succinate (METOPROLOL SUCCINATE) 50 Mg Tab.er.24h, 150 MG PO QDAY, #90 TAB Prov:ABI GORDON MD 11/21/16 Duloxetine Hcl (CYMBALTA) 30 Mg Capsule.dr, 60 MG PO QDAY, #30 CAP Prov:ABI GORDON MD 11/21/16 Acetaminophen (ACETAMINOPHEN) 500 Mg Tablet, 1000 MG PO BID PRN for PAIN, #100 TAB Prov:ABI GORDON MD 11/21/16 Venous Thromboembolism Antithrombotics Is Pt On Any Antithrombotics?: Yes Problem Qualifiers (1) Fever: Fever type: unspecified Qualified Codes: R50.9 - Fever, unspecified ALEJANDRO TROTTER DO Apr 26, 2018 13:00
== END 2018-04-26 13:56 | disposition home or self-care (01) | DRG 554 ==
LOC: ER 18:29 → MED 04-24 03:23
PROVIDERS: ADMIT Internal Medicine; ATTEND Internal Medicine
PROC: 0R9J3ZX Drainage of Right Shoulder Joint, Percutaneous Approach, Diagnostic (ICD-10-PCS; principal; 2018-04-23)
DX: M11.211 Other chondrocalcinosis, right shoulder (principal); I48.2 Chronic atrial fibrillation; I12.9 Hypertensive chronic kidney disease with stage 1 through stage 4 chronic kidney disease, or unspecified chronic kidney disease; N18.3 Chronic kidney disease, stage 3 (moderate); Z88.5 Allergy status to narcotic agent; E03.9 Hypothyroidism, unspecified; Z79.01 Long term (current) use of anticoagulants; Z98.1 Arthrodesis status
CPT/HCPCS: 36415; 71046; 72040; 72156; 80202; 81001; 82040; 82247; 82310; 82374; 82435; 82565; 82947; 83605; 84075; 84132; 84155; 84295; 84450; 84460; 84520; 85025; 85610; 85651; 86140; 87040; 87071; 87088; 87205; 87502; 89050; 89060; 96374; 96376; 97162; 97166; 99285; A9577; J0696; J1170; J3370; J7030; J7040; J7050; J7512

== ENCOUNTER → 2018-09-04 | Outpatient (CLI) | payer MEDICARE, OTHER ==
[2018-04-24 15:56] VITALS: BMI 38.7
[~2018-09-04] MED LIST changes: +ASCO-182 PO; +DILT240C76 PO; +DULO60CA7 PO; +FINA5TAB67 PO; +LEVO150T78 PO; +METO200T12 PO; +OXYC-865 PO; +PRED-1 PO
== END ==
LOC: US 00:39
PROVIDERS: ATTEND Physician Assistant
DX: I31.3 Pericardial effusion (noninflammatory) (principal)
CPT/HCPCS: 93308

== ENCOUNTER → 2018-12-14 | Outpatient (REF) ==
[2018-04-24 15:56] VITALS: BMI 38.7
[~2018-12-14] MED LIST changes: +CLOP75TA43 PO; +[UNRECOGNIZED DRUG - CODE] TP; -[UNRECOGNIZED DRUG - CODE] TP
== END ==
LOC: AMB 14:01
PROVIDERS: ATTEND Nurse Practitioner
DX: Z02.9 Encounter for administrative examinations, unspecified (principal)